=== PATIENT | male | born 1975 | race Caucasian/White ===

== ENCOUNTER 2018-10-26 11:04 | Outpatient (CLI) | payer OTHER, SELFPAY ==
--- NOTE | 2018-10-26 08:24 | DI.COMBO_ITS ---
SYMPTOM/DIAGNOSIS: RIGHT AND LEFT KNEE PAIN. LEG LENGTH EXAMINATION AND X-RAYS LEFT AND RIGHT KNEES: There are no priors for comparison. LEFT KNEE: The articular surfaces are well maintained. The bones are intact and normally mineralized. There is a moderate size joint, suprapatellar joint effusion. RIGHT KNEE: There is periarticular spurring involving all three joint compartments. There does appear to be mild narrowing of both the medial and lateral femoral tibial joint spaces. The bones are normally mineralized and intact. There is a moderate size suprapatellar joint effusion. LEG LENGTH EXAMINATION: The right lower extremity measures 86.8 cm. The left lower extremity measures 91.5 cm. IMPRESSION: Moderately severe osteoarthritis of the right knee. 2. Bilateral knee joint effusions.
== END 2018-10-26 11:24 ==
PROVIDERS: PCP Family Medicine; Visit Provider Physician Assistant
DX: M25.561 Pain in right knee (principal); M25.562 Pain in left knee; M25.462 Effusion, left knee; M25.461 Effusion, right knee; M17.11 Unilateral primary osteoarthritis, right knee
CPT/HCPCS: 73560; 77073

== ENCOUNTER 2019-10-26 07:01 | Outpatient (CLI) | payer OTHER, SELFPAY ==
[2019-10-28 07:51] LABS: COVID-19 RT-PCR Result NEGATIVE (Negative)
== END 2019-10-26 07:21 ==
PROVIDERS: PCP Family Medicine; Visit Provider Student in an Organized Health Care Education/Training Program
DX: M17.11 Unilateral primary osteoarthritis, right knee (principal); Z01.818 Encounter for other preprocedural examination; Z11.59 Encounter for screening for other viral diseases
CPT/HCPCS: U0003

== ENCOUNTER 2019-10-28 02:13 | Outpatient (CLI) | payer OTHER, SELFPAY ==
[2019-10-28 10:00] LABS: HCT 39.7 % (40.0-50.0); HGB 13.4 g/dL (13.5-17.5); Mean Corp. HGB Concentration 33.8 g/dL (32.0-36.0); Mean Corpuscular Hemoglobin 32.2 pg (27.0-33.0); Mean Corpuscular Volume 95.4 fL (80-95); Mean Platelet Volume 10.2 fL (8.0-11.0); Platelet Count 278 x1000/uL (130-400); RBC 4.16 m/cumm (4.50-6.00); RBC Distribution Width 12.9 % (11.8-14.1); White Blood Cell Count 5.19 k/cumm (4.4-10.8)
[2019-10-28 10:27] LABS: Anion Gap 7.9 mmol/L (3-11); BUN 13 mg/dL (7-18); CO2 30.1 mmol/L (21.0-32.0); CREATININE 0.75 mg/dL (0.70-1.30); Calcium 9.4 mg/dL (8.5-10.1); Chloride 103 mmol/L (98-107); Glucose 101 mg/dL (74-106); Potassium 4.2 mmol/L (3.5-5.1); Sodium 141 mmol/L (136-145)
== END 2019-10-28 02:33 ==
PROVIDERS: PCP Family Medicine; Visit Provider Student in an Organized Health Care Education/Training Program
DX: M17.11 Unilateral primary osteoarthritis, right knee (principal); Z01.818 Encounter for other preprocedural examination
CPT/HCPCS: 36415; 80048; 85027

== ENCOUNTER 2019-10-30 11:50 | Observation (INO) | payer OTHER, SELFPAY ==
[2019-10-30] VITALS (8 sets, daily range): BP systolic 103–143; BP diastolic 65–84; PULSE 66–107; RESP 8–18; TEMP 35.4–37; O2SAT 93–99
[2019-10-30] MEDS: Celecoxib 200 MG CAP 400 MG PO (12:47)
[2019-10-30] MEDS: Gabapentin 300 MG CAP PO (12:47)
[2019-10-30] MEDS: Acetaminophen 500 MG TAB 1000 MG PO ×2 (12:47→19:24)
[2019-10-30] MEDS: Lactated Ringers 1,000 ML 80 ML IV (12:50)
[2019-10-30] MEDS: ceFAZolin 2 GM/50 ML BAG IVPB (14:05)
--- NOTE | 2019-10-30 14:44 | SYNOVIUM_PTH ---
PATIENT: Homar Arredondo LOC: U#:[id number] AGE/SX: 44/M ROOM: RE10/30/[address]: Fausto Gonzales MD : [id number] BED: A DIS: 10/30/2019 SPEC #: [id number] RECD: 10/30/19 17:41 STATUS: BHARATH REQ #: [id number] NAZARIO: 10/30/19 14:[address]: Fausto Gonzales DEPT: Surgical Specimen RECD BY: Bibiana Pablo ENTERED: 10/30/19 17:41 SP TYPE: SYNOVIUM OTHR DR: Sunil Gómez Tissues: 1 - SYNOVIUM/IAL Procedures: GROSS AND MICRO LEVEL 4 Comments: [id number]
[2019-10-30] MEDS: Bupivacaine 0.25% Pres-Free 30 ML VIAL (14:58)
[2019-10-30] MEDS: Ketorolac 30 MG/ML VIAL (14:59)
[2019-10-30] MEDS: Normal Saline 20 ML VIAL (15:00)
--- NOTE | 2019-10-30 16:52 | W.PM.DS.N ---
Date of service: 10/30/19 Time of Service: 18:11 DS: Diagnosis Discharge Diagnosis (1) Primary osteoarthritis of right knee: Status: Chronic (2) Synovitis of right knee: Status: Acute Discharge Plan Disposition Patient Disposition: HOME Condition: Improving Discharge Details Reason For Visit: OA R KNEE Admit Date/Time: 10/30/19 11:50 Admit Provider: Fausto Gonzales Attending Provider: Fausto Gonzales Primary Care Provider: Sunil Gómez [facility] Hospital Course: Patient was admitted to the medical/surgical floor following the procedure. The surgery was tolerated well without any notable medical, surgical, or anesthetic complications. Mobilization began postoperatively. He was voiding spontaneously. Vitals were stable. Physical therapy worked with the patient and was cleared for discharge home. No acute medical issues. Pain was controlled on oral regimen. Home Meds and New Rx's Prescriptions: New celecoxib 200 mg capsule 200 mg PO BID PRN (Reason: pain) Qty: 60 RF: 1 acetaminophen 500 mg tablet 1,000 mg PO Q8H PRN (Reason: pain) Qty: 90 RF: 3 hydromorphone 2 mg tablet 2 mg PO Q4H PRN (Reason: pain) Qty: 18 RF: 0 docusate sodium [Colace] 100 mg capsule 100 mg PO BID PRNQty: 10 RF: 0 gabapentin 300 mg capsule 300 mg PO QHS Qty: 14 RF: 0 Continued Liver Complex 250-250 mg Tablet 1 mg PO DAILY RF: 0 [place] 1 caplet PO DAILY RF: 0 pantoprazole [Protonix] 20 mg Tablet,Delayed Release (Dr/Ec) 20 mg PO DAILY RF: 0 ascorbic acid (vitamin C) [Vitamin C] 500 mg Capsule, Extended Release 500 mg PO DAILY RF: 0 Cholocol tablet 500 mg PO DAILY RF: 0 Discontinued acetaminophen [Tylenol Arthritis Pain] 650 mg Tablet Extended Release 650 mg PO Q12H PRNRF: 0 Discharge Instructions Additional Instructions: Dr. Gonzales?s Total Knee Discharge Instructions Activity: The most important activity is to walk. You should try to take short walks a few times a day. It is important that when resting you work on keeping the knee straight. You have been fitted with a knee brace to help your knee stay straight. This should be kept on and locked as straight as possible when you are resting in the bed or chair. You may adjust the velcro straps for fit as needed. The more you keep it on the better to help this knee get straight. - Avoid putting a pillow behind the knee as this will encourage flexion. - Work on range of motion exercises as provided by Physical Therapy and the preoperative booklet. - Start outpatient physical therapy as soon as possible. - You should wear the KRISTINA hose on both legs for 2 weeks. Dressing: Keep the surgical dressing (Mepilex) in place for at least one week. If you went home on the surgical day, you should remove the JIN wrap on the second day (10/31) and then apply the KRISTINA hose. The dressing may get wet after 3 days but avoid soaking the dressing. If it gets wet, just lightly pat dry. Most patient prefer to cover with ClingWrap or Saran Wrap to keep the dressing dry. After the first week, the dressing may be removed and replaced with light gauze and tape or nothing. Medications: - You should take Tylenol and anti-inflammatory Celebrex as your primary pain control medications. If Celebrex is too costly or not covered, you may use Aleve (1-2 tablets twice a day). - You have been prescribed a stronger pain medication Hydromorphone for breakthrough pain, take as needed as prescribed. - You should continue your stomach acid reduction agent Pantoprozole to help reduce stomach acid and reflux. - You will be taking Aspirin 81mg twice a day for DVT prevention unless instructed otherwise. - If you have constipation you should take Colace or Miralax (both [id number]). It takes most people 3-4 days to have a bowel movement. Follow-up: 2 weeks. You should also call physical therapy to work on scheduling outpatient therapy sessions which can begin at 2 weeks. If you have any acute concerns or questions, please do not hesitate to contact the office at [phone]. You may contact Dr. Gonzales with any questions after hours through the hospital at [phone] or on his cell phone at [phone]. Referrals: [facility] [Provider Group] Fausto Gonzales MD [ [facility] STAFF PHYSICIAN] - Activity:: Activity as Tolerated Equipment/Supplies:: Walker Diet:: As Tolerated Discharge Orders Discharge Orders: Discharge Order (Routine); Ordered 10/30/19 Ordered By: Fausto Gonzales DS: Summary Status at Discharge Functional status at discharge: uses cane/walker Overall status at discharge: patient is progressing back to baseline Mental Status: mental status grossly normal Speech and Movement: speech and movement normal Mood: congruent mood Affect: normal affect Exam Psych Mental Status: mental status grossly normal Speech and Movement: speech and movement normal Mood: congruent mood Affect: normal affect DS: Data Vitals/I&O Vitals and I&O: Vital Signs Temperature 36.7 C 10/30/19 16:36 Pulse 86 10/30/19 16:36 Pulse Rhythm Regular 10/30/19 12:00 Respiratory Rate 12 10/30/19 16:36 Respiratory Effort 10/30/19 12:00 Respiratory Depth Normal 10/30/19 12:00 Respiratory Pattern Normal 10/30/19 12:00 Blood Pressure 128/65 10/30/19 16:36 Pulse Oximetry 93 L 10/30/19 16:36 Respiratory End-tidal CO2 32 10/30/19 16:36 Oxygen Delivery Method Room Air 10/30/19 16:36 Oxygen Flow Rate 0 10/30/19 12:00 Pain Level 5 10/30/19 16:36 Intake & Output 10/29/19 10/30/19 10/30/19 23:59 11:59 23:59 Intake Total 820 / 820 Output Total 300 / 300 Balance 520 / 520 Weight 89.2 kg Intake: IV 820 / 820 Output: Estimated Blood Loss 300 / 300 Other: Emesis Description None [facility] Medical History Stricture of bile duct (Acute) Ulcerative colitis (Chronic) Surgical History Cholecystectomy (04/06/11) Colonoscopy - MAC (06/01/11) [facility] [place]-ULCERATIVE COLITIS ERCP 09/16/14 [facility] [place] Previous back surgery (Acute) spina occulta fusion in Family History Mother No problems noted. Father Essential hypertension Heart disease ANEURYSM Hyperlipidemia Sister No problems noted. Grandfather No problems noted. Grandfather Heart disease Myocardial infarction Grandmother Essential hypertension Stroke Grandmother Essential hypertension Heart disease ANEURYSM Hyperlipidemia Stroke Social History Smoking/Tobacco Use Status: Never Drug use: Never Current gender identity: male
--- NOTE | 2019-10-30 17:26 | ROE_ITS ---
Date of service: 10/30/19 Time of Service: 16:18 Operative Note Operative Note DATE OF PROCEDURE: 10/30/19 PRE-OP DIAGNOSIS: Right Knee inflammatory arthritis and arthrofibrosis POST-OP DIAGNOSIS: same PROCEDURE: Right Total Knee Replacement with complete synovectomy and synovial biopsy SURGEON: Fausto Gonzales SEA[employer]OD TECHNOLOGY SPECIALIST: Arline Osborn ANESTHESIA: regional and spinal ESTIMATED BLOOD LOSS: 300 PATHOLOGY: none sent TOURNIQUET TIME: 34 COMPLICATIONS: None Patient was transported to: PACU Patient's condition: stable Implants: 1. Depuy Attune Cruciate Retaining Femoral Component, Size 5 2. Depuy Attune Rotating Platform Tibial Component, Size 5 3. Depuy Attune 5 x 12 mm CR,RP Poly 4. Depuy Attune Patellar Component, Size 38 mm Indications: I have seen Homar in clinic for symptoms of knee arthritis and arthrofibrosis, confirmed with radiographic findings. He has exhausted nonoperative methods and was having significant limitations in daily function and desired better function and less pain. I discussed the technical details of a knee replacement. I explained the risks of the procedure to include, but not limited to, bleeding, infection, pain, stiffness, fracture, damage to nerves and vessels, damage to muscles and tendons, loosening, need for repeat procedure, blood clot and cardiopulmonary demise. Despite these risks, he elected to proceed. Findings: There is abundant synovitis seen throughout the knee. This was thickened and inflammatory throughout the entire knee. A complete synovectomy was performed. There was significant signs of arthritis throughout the knee with erosive changes of the cartilage surfaces. Synovial biopsy was taken and sent to pathology. Procedure Description: Homar was greeted in the preoperative holding area where the correct side was identified and marked. The consent was reviewed with the patient and signed. The history and physical was updated. All questions were answered. Preoperative mediacations were administered: Acetaminophen 1000mg, Celebrex 400mg, and Gabapentin 300mg. An adductor canal block was then administered by the anesthesia team in the PACU. Homar was taken back to the operating room. A spinal anesthestic was then administered. The patient was placed into the supine position on the operating room table. A nonsterile tourniquet was placed high onto the leg but only used for cementing. Posts were placed for positioning during the procedure. All bony prominences were well padded. Prophylactic antibiotics in the form of cefazolin were administered. 1g of Tranxemic Acid was given intravenously within 30 minutes of incision. The right leg was then prepped with Chloraprep and draped in a standard fashion with impervious stockinette and extremity drape. A second prep with Chloraprep was performed prior to placing Ioband. A timeout to confirm correct identity, side and site, procedure, allergies, anesthesia, and medical concerns was performed. With the knee in some flexion, a midline incision was made overlying the knee. Full thickness skin flaps were raised once the extensor mechanism was encountered. These were raised medially and laterally. Any bleeding was controlled with electrocautery. Once the extensor mechanism was fully exposed, a medial parapatellar arthrotomy was performed in a flexed position. All bleeding from the arthrotomy and the geniculate arteries was coagulated. There was significant synovitis throughout the entire knee. The cartilage surfaces were coated with a thin inflammatory veil with erosive changes to the cartilage. The synovium was quite thick. A complete synovectomy was then performed moving anteriorly and around the medial lateral gutters. This was taken out en bloc and then sent to pathology as a synovial specimen for pathologic evaluation of presumed inflammatory arthritis. Additionally, rondure was used to clean out the gutters and synovium from around the patella was removed. A medial subperiosteal peel was performed with electrocautery to the midcoronal plane. The fat pad was removed while keeping the patellar tendon protected. The anterior distal femur synovium was removed for later visualization. The ACL and PCL were resected and the anterior horn of the lateral meniscus was transected. The knee was then flexed with the patella everted. Using a step drill, and based on preoperative templating, the femoral canal was entered. This was done with a step drill without any difficulty. The intramedullary distal femoral cut guide was inserted, set to a 5 degree valgus cut and 10mm cut thickness. A 10 mm cut was made due to a 35 degree flexion contracture. The distal femoral cut guide was then held in position and pinned. With the soft tissues protected, the distal cut was performed. This was passed over a few times to ensure a planar cut. I then turned attention to the tibia. The extramedullary guide was placed onto the leg. The distal aspect was slid medial to adjust for position of center of ankle and stay in line with shaft of the tibia. Approximately 5 degrees of posterior slope was kept in the proximal cutting guide. The center of the guide was aligned with the PCL. The stylus was used to assess cut thickness. The medial side, most involved side, was set for a 6mm cut, corresponded to 8 mm laterally. This was then held in position and pinned into place with 2 additional pins and a cross pin for stability. The medial and lateral collateral ligaments were protected and the cut was performed. With this completed, it was assessed and noted to be of appropriate dimensions. The guide was removed. A spacer block was inserted and the knee was brought into extension. However, there is significant tightness. Given the known flexion contracture I went back and cut an additional 2 mm off of the femur as well as cutting additional 2 mm off of the tibia. At this time, I also performed a posterior synovectomy as there was a abundant amount of synovium billowing from the posterior joint space. This was done with a rongeur and done carefully only taken tissue which easily was removed. The 7 mm spacer block provided full extension, however there was still some laxity in a bouncy, soft endpoint. The distal femur was then sized. The anterior stylus was placed onto the lateral ridge of the anterior femur. This indicated a size 5 femur. The external rotation of the guide was adjusted to 3 degrees to match the epicondylar axis, perpendicular to Starr?s line. The 4-in-1 cutting guide was the placed. The posterior medial femur cut was evaluated and appeared of good thickness. The spacer block was inserted underneath the cutting guide and stability was confirmed in 90 degrees of flexion. An nestor wing was used to confirm appropriate position of the anterior cut to avoid notching. This cutting guide was ensured to be flush on the cut surface and then pinned into place with headed pins. While protecting the soft tissues, quad tendon, and collateral ligaments, the anterior and posterior cuts were performed with a saw. The central two pins were removed and the posterior and anterior chamfers were cut next. The notch-cutting guide was placed. This was pinned to lateralize the femoral component as much as possible while keeping it flush on the cut surface. This was then pinned into position. A reciprocating saw was used to make the small notch cut. I then performed aggressive posterior capsule release. Using a curved osteotome I removed any posterior osteophytes. I then used electrocautery and my finger to slowly subperiosteally dissect posterior capsule from behind the medial condyles, notch, and lateral condyle. I then used a curved osteotome to very slowly elevate off the posterior capsule from the posterior femur. There is a abundant thickened synovium. A rondure was used to help thin this out, being cognizant careful of the posteriorly based neurovascular structures. A trial CR femoral component was then inserted, impacted down to the cut surfaces, and the lug holes were drilled. A provisional trial tibial component was placed and the knee was brought through range of motion. The polyethylene was trialed until there was good flexion and extension with excellent stability to the medial and lateral collaterals. The patella was tracking without thumbs. The tibial cut surface was fully exposed. The medial and lateral menisci were removed. The tibia was then sized as a 5. The tibia had been previously marked during trialing to correspond to the center of the tibial component to help with rotation. The trial was aligned to this hattie, approximately rotated to the medial 1/3rd of the tibial tubercle. The trial was pinned into place. The tibia was prepared with a reamer and a keel punch. The knee was then brought into extension and the patella was measured as 28 mm. Using the patellar clamp and cut guide, this was resected to a flat surface with at least 13mm of thickness remaining. The size 38 mm patella fit the best. This was oriented and then clamped into position. The lugs were drilled. The trial components were removed. The final components, except for the polyeth ylene were opened on the back table. The periosteal and capsular tissues, especially posteriorly, around the knee were then systematically injected with a periarticular cocktail consisting of 50cc 0.25% Marcaine, 30mg Ketorolac, 20cc of Exparal and 50cc of injectable saline. The tourniquet was then inflated to 275mmHg. The knee was thoroughly irrigated with a pulse lavage and dried. On the back table, with the implants opened, the cement was mixed. 2 batches of antibiotic laden cement were prepared with vacuum assistance. After the cement was ready it was placed on to the back side of the tibial component. A small amount was placed onto the posterior flange of the femur. Cement was manual pressurized and impregnated into the cut surface of the tibia. The tibial component was then inserted into the cut surface and impacted into position. Excess cement was removed and the component was reimpacted. Again, excess cement was removed and our attention was then turned to the femur. The femoral cut surface was once again dried and cement was manually impacted into the cut surface. The femoral component was lined with the lug holes and impacted. Excess cement was removed. It was ensured to be down against the cut surface. The trial polyethylene was then inserted and the leg was brought out into full extension for the duration of the cement curing process, approximately 15min. Cement was lastly manually impacted into the cut surface of the patella and the patellar button was clamped into position and held. During this process attention was turned to the gutters of the knee and for all interfaces for any excess cement. While the cement was hardening, the knee was irrigated with Irrisept chlorhexadine solution. It was allowed to sit in the knee for 3 minutes. After the cement had finally cured, approximately 15min, the clamp was removed from the patella and the knee was taken through range of motion. A size 12 mm polyethylene component provided the best range of motion and stability with less than 2mm gapping with medial and lateral stress and full extension without significant hyperextension. There is still significant balance to the knee. However, after all the synovium was resected there is slightly more lateral instability that I would like with the 10 mm tray. However, between the 10 and 12 mm polyethylene, there is very little change in the extension. He would fall to about 3 to 5 degrees of extension but like to recoil to 10. I was able to passively get him fully straight although it was a soft endpoint. The patella was tracking with a no-thumbs technique. The trial poly was removed and once again the knee was checked for any loose, excess, or errant cement. The poly component was then inserted into position after cleaning and drying the tibial tray. The capsule was then reapproximated with a No. 1 Vicryl at multiple locations. The capsule was finally closed with a No. 2 Stratafix, barbed suture. The tourniquet was then released and the arthrotomy appeared watertight without significant bleeding. The second dosing of 1g TXA was started. Deep tissues were then reapproximated with 0 Vicryl and 2-0 Vicryl. The skin was closed with a running 3-0 Monocryl in a subcuticular fashion. This was reinforced with skin glue. A Mepilex silver dressing was applied along with a [id number] JIN wrap. A CryoCuff was applied. Homar was transferred to the hospital bed without difficulty an suffering no apparent complication. Homar has a guarded prognosis. His preoperative range of motion was about 35 to 85 degrees. After closure of this arthrotomy, his range of motion was 5 to 130 degrees. I am concerned that his years of being limited with range of motion will cause significant postoperative difficulties regaining flexion and extension. Therefore, I placed him into a locked hinged knee brace. He is to wear this locked in extension while he is resting at bed and in the chair. He is to either unlock it or take it off for range of motion exercises and for ambulation as he desires. Physical therapy will start today and without restrictions, weight-bearing as tolerated. Aspirin 81mg BID will be used for DVT prophylaxis.
--- NOTE | 2019-10-30 17:40 | IN_ITS ---
Date of service: 10/30/19 Time of Service: 17:40 PT Notes Visit Reasons: OA R KNEE Physical Therapy Inpatient Initial Evaluation Date: 10/30/2019 Referring Doctor: Fausto Gonzales MD PT Orders: PT CONSULT: Status post Ortho surgery Precautions: Fall. Standard. WBAT on her right LE. Hinged knee joint on when in bed to facilitate passive stretch to right hamstring per Ortho MD. Patient Profile/Admitting Diagnosis: Homar is a 44-year-old male who has right knee inflammatory arthritis and arthrofibrosis and is status post right total knee arthroplasty with complete synovectomy and synovial biopsy on postoperative day 0. PMHX: Medical History (Updated 10/18/19 @ 16:44 by TANNER Henderson) Stricture of bile duct (Acute) Ulcerative colitis (Chronic) Surgical History (Updated 10/18/19 @ 09:57 by TANNER Henderson) Cholecystectomy (04/06/11) Colonoscopy - MAC (06/01/11) [facility] [place]-ULCERATIVE COLITIS ERCP 09/16/14 [facility] [place] Previous back surgery (Acute) spina occulta fusion in Do not have any alcohol Social History/Home Situation: Homar lives alone in a private home with 2 steps to enter. He states that his father will be able to provide support for him once he goes home with anything that he needs. Equipment Owned/DME: Bilateral axillary crutches, front wheeled walker Subjective: Homar reports discomfort on the lateral aspect area of the right knee over overlying the lateral femoral condyle. He complains of stiffness on the back of his thigh and knee. He denies dizziness, chest pain, and lightheadedness throughout session. He is hoping to go home today stating that he will have the support he needs at home. Objective: General Observation: Hinged knee brace on right side. IV in the right UE. TEDS on the left. Mental Status: Alert and oriented x4 Pain: 4/10 in the right knee ROM: Right Upper Extremity: Shoulder Flexion WFL. Shoulder abduction WFL. Elbow flexion WFL. Wrist flexion WFL. Opening and closing of hand WFL. Left Upper Extremity: Shoulder Flexion WFL. Shoulder abduction WFL. Elbow flexion WFL. Wrist flexion WFL. Opening and closing of hand WFL. Right Lower Extremity: Hip flexion WFL. Hip abduction WFL. Knee flexion allows up to 80 degrees. Knee extension -30 degrees. Ankle dorsiflexion WFL. Ankle plantarflexion WFL. Left Lower Extremity: Hip flexion WFL. Hip abduction WFL. Knee flexion WFL. Knee extension -10 degrees. Ankle dorsiflexion WFL. Ankle plantarflexion WFL. Strength: Right Upper Extremity: Shoulder flexors 5/5. Shoulder abductors 5/5. Elbow flexors 5/5. Elbow extensors 5/5. Semiconductor Assembler strong. Left Upper Extremity: Shoulder flexors 5/5. Shoulder abductors 5/5. Elbow flexors 5/5. Elbow extensors 5/5. Semiconductor Assembler strong. Right Lower Extremity: Hip flexors 4-/5. Hip abductors 4-/5. Knee flexors 3-/5. Knee extensors 3-/5. Ankle dorsiflexors 4/5. Ankle plantarflexors 4/5. Left Lower Extremity:Hip flexors 5/5. Hip abductors 5/5. Knee flexors 5/5. Knee extensors 5/5. Ankle dorsiflexors 5/5. Ankle plantarflexors 5/5. Sensation: Intact as to pain and pressure on bilateral lower extremities. Bed Mobility/Transfers: Supine to sit supervision Sit to supine supervision Sit to stand contact-guard assist Stand to sit contact-guard assist Bed to chair contact-guard assist Chair to bed contact-guard assist Gait: Patient tolerated level surface ambulation of 150 feet using front wheeled walker with contact-guard assist and IV pole management of PT as well as a wheelchair follow of nurse Mccabe. Jessica decreased but patient states that he is significantly more able to stand upright and is able to straighten knee considerably compared to pre-surgery status. Step-to gait pattern. Decreased knee extension on the right. Right knee flexed to about 30 degrees throughout gait cycle. Balance: Static Sitting: Normal Dynamic Sitting: Normal Static Standing: Fair Dynamic Standing: Fair Special Tests: Mobility Limitations Standardized Measure [facility] 6 clicks Basic Mobility Inpatient Short Form: Raw Score: 18 CMS Score: 47% deficit Informed Consent/Education: Patient instructed in purpose of PT consult and plan of care. Assessment: Homar demonstrates ambulatory dysfunction requiring the use of a front wheeled walker to maximize safety. Right flexion contracture has significantly diminished and he is able to actively extend knee from 80degrees of flex position to about -30 degrees of knee extension. He will require continued skilled physical therapy services in order to minimize soft tissue adhesion and strengthen right knee major muscle groups in order to achieve safest to gait pattern and maximize functional mobility independence. Patient presents with clinical signs and symptoms consistent with current/admitting diagnoses that have resulted to mobility limitations, gait instability, generalized weakness, and impairment of motor control as demonstrated by the following impairment level findings: 1. Decreased strength to right knee major muscle groups 2. Impaired standing balance 3. Impaired activity tolerance 4. Limitation of joint range of motion in right knee Impairments are contributing to the following functional limitations: 1. Inability to safely ambulate without assistive device and physical assistance 2. Increase completion time for mobility ADL performance 3. Increased fall risk 4. Inability to negotiate steps alone safely Patient is assessed as a moderate complexity based on the following: History: 44-year-old male with impairment level findings, functional limitations, and past medical history as indicated above Examination: Demonstrable impairment in strength, balance, and mobility level with underlying impairments and functional limitations as documented above Presentation:Evolving Decision Makin moderate complexity Goals: N/A. PT consult only. Plan of Care/Treatment Plan: N/A. PT consult only. DISCHARGE RECOMMENDATIONS: Outpatient PT services for continued strengthening and ranging of right LE and mobility progression using least restrictive device. TREATMENT CODE/TIME: 9716 2 x 20 minutes, 9753 0 x 25 minutes beginning at 5:40 PM. Thank you for the opportunity to participate in the care of this patient. Rajni Menendez PT, DPT, CLT [facility] [place], [place]
[2019-10-30] MEDS: Celecoxib 100 MG CAP 200 MG PO (19:23)
[2019-10-30] MEDS: Aspirin E.C. 81 MG TABEC PO (19:24)
== END 2019-10-30 19:28 | disposition home or self-care (01) ==
LOC: PDS 16:57 → MS 17:30 → PDS 10-31 09:58
PROVIDERS: Admitting Provider Student in an Organized Health Care Education/Training Program; PCP Family Medicine; Visit Provider Student in an Organized Health Care Education/Training Program
PROC: 0SRC0J9 Replacement of Right Knee Joint with Synthetic Substitute, Cemented, Open Approach (ICD-10-PCS; CPT 27447; principal; 2019-10-30 14:15)
DX: M17.11 Unilateral primary osteoarthritis, right knee (principal); M25.561 Pain in right knee; Z96.651 Presence of right artificial knee joint; M65.861 Other synovitis and tenosynovitis, right lower leg; G89.18 Other acute postprocedural pain
CPT/HCPCS: 27447; 27335; C1776; 76942; 88305; 97162; 97530; NC; G0378; J0690; J1885; J2001; J2250; J2405; J2704; J3010; L1833

== ENCOUNTER 2019-11-14 11:13 | Outpatient (CLI) | payer OTHER, SELFPAY ==
--- NOTE | 2019-11-14 10:45 | DI.RAD_ITS ---
EXAM: XR STANDING ALIGNMENT CLINICAL HISTORY: 1st post op TECHNIQUE: COMPARISON: CR XR standing alignment from 10/26/2018 FINDINGS: AP views of lower extremities were obtained using standing alignment protocol. There are mild degene rative changes of the right hip. There is a total knee joint replacement in position on the right. There appears to be degenerative narrowing of the medial tibial femoral joint on the left. IMPRESSION:
--- NOTE | 2019-11-14 10:45 | DI.RAD_ITS ---
EXAM: XR KNEE RT 1V CLINICAL HISTORY: 1st post op TECHNIQUE: COMPARISON: CR XR knee LT 2V AP,lat from 10/26/2018 FINDINGS: Single lateral view was obtained. There is a total knee joint replacement in position. Components a ppear well seated. No other significant bony abnormality seen. IMPRESSION:
== END 2019-11-14 11:33 ==
PROVIDERS: PCP Internal Medicine; Referring Provider Internal Medicine; Visit Provider Physician Assistant
DX: Z96.651 Presence of right artificial knee joint (principal); M16.11 Unilateral primary osteoarthritis, right hip
CPT/HCPCS: 73560; 77073

== ENCOUNTER 2019-12-13 07:07 | Outpatient (CLI) | payer OTHER, SELFPAY ==
[2019-12-15 17:58] LABS: COVID-19 RT-PCR Result NEGATIVE (Negative)
== END 2019-12-13 07:27 ==
PROVIDERS: Visit Provider Student in an Organized Health Care Education/Training Program
DX: Z20.828 Contact with and (suspected) exposure to other viral communicable diseases (principal)
CPT/HCPCS: U0003

== ENCOUNTER 2019-12-18 08:29 | Day surgery (SDC) | payer OTHER, SELFPAY ==
[2019-12-18] VITALS (9 sets, daily range): BP systolic 121–212; BP diastolic 74–100; PULSE 80–104; RESP 12–20; TEMP 36.6–37; O2SAT 95–100
[2019-12-18] MEDS: Lactated Ringers 1,000 ML 80 ML IV (09:20)
[2019-12-18] MEDS: Bupivacaine 0.5% Pres-Free 30 ML VIAL (09:50)
[2019-12-18] MEDS: HYDROmorphone 2 MG/ML VIAL IVP (10:10)
--- NOTE | 2019-12-18 10:17 | W.PM.DSUDISC ---
Discharge Plan Disposition Patient Disposition: HOME Condition: Good Discharge Details Reason For Visit: Right Knee Arthrofibrosis Attending Provider: Fausto Gonzales Primary Care Provider: None,None Home Meds and New Rx's Prescriptions: Continued cyclobenzaprine 5 mg tablet 5 mg PO TID PRN (Reason: muscle spasm) Qty: 15 RF: 0 Liver Complex 250-250 mg Tablet 1 mg PO DAILY RF: 0 Chanca [place] 1 caplet PO DAILY RF: 0 pantoprazole [Protonix] 20 mg Tablet,Delayed Release (Dr/Ec) 20 mg PO DAILY RF: 0 ascorbic acid (vitamin C) [Vitamin C] 500 mg Capsule, Extended Release 500 mg PO DAILY RF: 0 Cholocol tablet 500 mg PO DAILY RF: 0 celecoxib 200 mg capsule 200 mg PO BID PRN (Reason: pain) Qty: 60 RF: 1 acetaminophen 500 mg tablet 1,000 mg PO Q8H PRN (Reason: pain) Qty: 90 RF: 3 docusate sodium [Colace] 100 mg capsule 100 mg PO BID PRNQty: 10 RF: 0 gabapentin 300 mg capsule 300 mg PO QHS Qty: 14 RF: 0 Probiotic 3 billion cell Capsule 3,000 mmu cells PO DAILY RF: 0 hydromorphone 2 mg tablet 2 mg PO Q6H MDD 8 mg PRN (Reason: pain) Qty: 20 RF: 0 Discharge Instructions Additional Instructions: Activity: You should begin moving as soon as possible. You may work on flexion but also equally maintain extension. You may bear weight as tolerated, using crutches only for support/comfort. You should apply ice to help with swelling and elevate when possible (especially in the first few days). You should apply ice to assist with swelling and pain. Medications: - Rarely does this require any stronger pain medications, but it may for the first few days or with PT. A refill of Hydromorphone has been called in. - Recommend to take up to 1000mg of Acetaminophen (Tylenol) every 8 hours and Celebrex 200mg twice a day as needed. Follow-up: 7-10 days. PT should start tomorrow. Activity:: Activity as Tolerated Remove Dressings/Wound Care:: 24 hours Shower/Bathe:: 24 hours Diet:: As Tolerated Discharge Orders Discharge Orders: Discharge Order (Routine); Ordered 12/18/19 Ordered By: Fausto Gonzales DS: Diagnosis Discharge Diagnosis (1) Arthrofibrosis of total knee arthroplasty: Status: Acute
--- NOTE | 2019-12-18 11:21 | ROE_ITS ---
Date of service: 12/18/19 Time of Service: 10:33 Operative Note Operative Note DATE OF PROCEDURE: 12/18/19 PRE-OP DIAGNOSIS: Right Knee Arthrofibrosis s/p Replacement POST-OP DIAGNOSIS: same PROCEDURE: Right Knee Manipulation Under Anesthesia SURGEON: Fausto Gonzales ANESTHESIA: CASSIE ESTIMATED BLOOD LOSS: 0 PATHOLOGY: none sent TOURNIQUET TIME: 0 COMPLICATIONS: None Patient was transported to: PACU Patient's condition: stable Indications: Homar is a 44 year old who is s/p knee replacement. Despite diligent work with physical therapy there has been continued stiffness. To assist with mobility, I offered a manipulation under anesthesia. I discussed the risks of the procedure to include bleeding, pain, recurrent stiffness, fracture. Despite these risks, he elects to proceed. Findings: Preoperative flexion = 75 Postoperative flexion = 125 Preoperative extension = 20 Postoperative extension = 5 Procedure Description: The patient is agreed in the preoperative holding area. Identity was confirmed and the correct side was identified and marked. The consent was reviewed the patient and signed. History and physical was updated. Homar was taken back to the operating room. The right side was identified as the correct side. A timeout was performed for safe surgery. A general anesthetic was administered. The knee was then prepped with ChloraPrep and an intra-articular injection of 10 cc of 0.5% bupivacaine was administered. Once a muscle relaxant was fully on board manipulation was performed. Pre- manipulation range of motion was noted. A gentle manipulation was performed first into flexion using a very small lever arm and adding gentle and progressive pressure to the tibia. There is audible and palpable crepitus with improvement in range of motion. This was cycled and repeated multiple times. The leg was then brought into extension and gentle anterior posterior pressure was applied with a supported hand behind the proximal tibia and knee. This was brought back into flexion was once again manipulated with gentle and progressive pressure. Final range of motion numbers were recorded. A Band-Aid was applied to the injection site. He was awakened from anesthesia and taken to the PACU in stable condition.
[2019-12-18] MEDS: HYDROmorphone 2 MG TAB PO (11:56)
== END 2019-12-18 12:55 | disposition home or self-care (01) ==
PROVIDERS: Visit Provider Student in an Organized Health Care Education/Training Program
PROC: (CPT 27570; principal; 2019-12-18 10:15)
DX: T84.82XA Fibrosis due to internal orthopedic prosthetic devices, implants and grafts, initial encounter (principal)
CPT/HCPCS: 27570; J1885; J2001; J2704

== ENCOUNTER 2020-10-26 15:50 | Outpatient (CLI) | payer OTHER, SELFPAY ==
--- NOTE | 2020-10-26 14:45 | DI.RAD_ITS ---
Exam(s) XR KNEE RT 2V AP,LAT EXAM: XR KNEE RT 2V AP,LAT CLINICAL HISTORY: annual f/u R TKA. TECHNIQUE: 2D digital imaging was performed. COMPARISON: CR XR KNEE RT 1V from 11/14/2019 FINDINGS: Position alignment of the components of the prosthesis remain stable. There is no fracture nor evide nce of loosening. IMPRESSION: DATA REPOSITORY: RADIATION DOSE DELIVERED:
== END 2020-10-26 15:51 | disposition home or self-care (01) ==
LOC: DIORS 15:50
PROVIDERS: Visit Provider Student in an Organized Health Care Education/Training Program
DX: Z96.651 Presence of right artificial knee joint (principal)
CPT/HCPCS: 73560

== ENCOUNTER 2021-12-02 10:51 | Emergency (ER) | payer OTHER, SELFPAY ==
[2021-12-02 11:10] VITALS: BP 135/86; PULSE 88; RESP 18; TEMP 36.8; O2SAT 99
--- NOTE | 2021-12-02 12:15 | DI.CT_ITS ---
Exam(s) CT ABDOMEN PELVIS WO EXAM: CT ABDOMEN PELVIS WO CLINICAL HISTORY: Right flank pain TECHNIQUE: COMPARISON: CT RENAL COLIC WO CONTRAST from 03/14/2011 FINDINGS: CT examination of the abdomen and pelvis was performed without contrast administration. Images obtained through the lung bases are unremarkable. The liver appears normal with no evidence of a focal mass. There is question of wall thickening of the gastric antrum and duodenal bulb raising the possibility of inflammatory process, there is also mild associated Nithya visceral fat edema.. No evidence of obst ruction. No perforation. Spleen is unremarkable in appearance.. Note is made of a prior cholecystectomy,bile ducts are unremarkable. Pancreas is unremarkable in appearance. Adrenals appear normal bilaterally. There are multiple bilateral renal calculi, the largest lies in the right kidney and measures 12 mill imeters in diameter. No ureteral calcification. Urinary bladder appears to contain a tiny stone whi ch could lie within the bladder lumen or in the distal most portion of the intramural portion of the right ureter period no hydronephrosis at this time. There is no evidence of abdominal or pelvic adenopathy. Abdominal aorta is of normal diameter and no abnormality is seen involving major visceral branches.. Appendix is normal. No evidence diverticulitis or bowel obstruction. No significant abdominal wall hernia seen. Impression: Bilateral nephrolithiasis with stone in the urinary bladder versus intramural portion of the distal r ight ureter. Additionally, there are findings raising the possibility of gastritis and/or duodenitis. Please sudheer elate clinically. RADIATION DOSE DELIVERED: Total DLP Total DLP !Error CTDIvol DATA REPOSITORY: All CT scans at this facility are submitted to the National Radiology Data Registry (NRDR) Dose Index Registry (DIR) with the [employer] ([employer]). RADIATION OPTIMIZATION: All CT scans at this facility use at least one of these dose optimization te chniques: automated exposure control; mA and/or kV adjustment per patient size (includes targeted exa ms where dose is matched to clinical indication); or iterative reconstruction.
--- NOTE | 2021-12-02 12:29 | W.ED.GENAD ---
Discharge Plan Disposition Patient Disposition: HOME Condition: Stable Discharge Details Clinical Impression: Kidney stone on right side, Duodenitis, Elevated liver enzymes Primary Care Provider: None,None ED Provider: Samina Camargo Home Meds and New Rx's Prescriptions: New ondansetron 4 mg tablet,disintegrating 4 mg PO Q8H PRN5 Days Qty: 15 0RF No Action acetaminophen 500 mg tablet 1,000 mg PO Q8H PRN (Reason: pain) Qty: 90 3RF celecoxib 200 mg capsule See Rx Instructions .ROUTE .COMPLEX Qty: 60 5RF Dose Instruction: TAKE ONE CAPSULE BY MOUTH TWICE A DAY NEEDED FOR PAIN Rx Instructions: TAKE ONE CAPSULE BY MOUTH TWICE A DAY NEEDED FOR PAIN Liver Complex 250-250 mg Tablet 1 mg PO DAILY Chanca [place] 1 caplet PO DAILY ascorbic acid (vitamin C) [Vitamin C] 500 mg Capsule, Extended Release 500 mg PO DAILY Cholocol tablet 500 mg PO DAILY Probiotic 3 billion cell Capsule 3,000 mmu cells PO DAILY Label Comments: pt. unsure of dose or name Discharge Instructions Instructions: Kidney Stones (ED) Additional Instructions: Your liver enzymes are elevated today. AST 100, ALT 181, Alkaline Phospatase 1049. Bilirubin 5.5 Please let your GI doctor know about these levels. You do have a large kidney stone within your right kidney. And a smaller 1 in the ureter. Please follow-up with urology regarding this. Take the nausea medication and pain medication as directed. Do not take any Tylenol if possible due to the elevated liver enzymes Referrals: Jeffery Estevez MD [ [facility] STAFF PHYSICIAN] - 5 days (12 mm Right side kidney stone) Medical Decision Making 46-year-old male presents to the ER chief complaint of right flank pain, nausea and presyncopal. He reports lightheadedness feeling like he is going to pass out. He states he has had right flank pain for the last 2 weeks and increased abdominal pain in his mid epigastrium over the last [address] shows 12 mm right-sided kidney stone, there is also a 1 mm ureteral stone at the junction of the bladder. He also has some inflammation around his duodenum and fat stranding. Patient reports that he recently stopped his Protonix and they did see an ulcer on his recent endoscopy. Discussed CT results with patient who verbalized understanding. I did discuss his lab results. Encouraged 3 use of his Protonix and close follow-up. Patient was sent home with Zofran and tramadol. This text was generated using [employer] dictation system, please disregard any oddities of phrase or misspellings. Imaging Data Radiologic Study: Imaging: CT Scan Radiologist's impression: CT examination of the abdomen and pelvis was performed without contrast administration. Images obtained through the lung bases are unremarkable. The liver appears normal with no evidence of a focal mass. There is question of wall thickening of the gastric antrum and duodenal bulb raising the possibility of inflammatory process, there is also mild associated Nithya visceral fat edema.. No evidence of obstruction. No perforation. Spleen is unremarkable in appearance.. Note is made of a prior cholecystectomy,bile ducts are unremarkable. Pancreas is unremarkable in appearance. Adrenals appear normal bilaterally. There are multiple bilateral renal calculi, the largest lies in the right kidney and measures 12 millimeters in diameter. No ureteral calcification. Urinary bladder appears to contain a tiny stone which could lie within the bladder lumen or in the distal most portion of the intramural portion of the right ureter period no hydronephrosis at this time. There is no evidence of abdominal or pelvic adenopathy. Abdominal aorta is of normal diameter and no abnormality is seen involving major visceral branches.. Appendix is normal. No evidence diverticulitis or bowel obstruction. No significant abdominal wall hernia seen. Impression: Bilateral nephrolithiasis with stone in the urinary bladder versus intramural portion of the distal right ureter. Additionally, there are findings raising the possibility of gastritis and/or duodenitis. Please correlate clinically. Lab Data Lab results reviewed: Yes I reviewed the patient's lab results. Labs: 12/02/21 12:35 Urine - Reflex from Ua Urine Culture - Pending Laboratory Tests Range/Units 12/02/21 12/02/21 12/02/21 12:35 13:33 13:33 WBC (4.4-10.8) 10^3/uL 6.36 RBC (4.36-5.78) 10^6/uL 3.85 L Hgb (13.5-17.5) g/dL 12.6 L Hct (40.0-50.0) % 37.9 L MCV (80-95) fL 98 H MCH (27.0-33.0) pg 32.7 MCHC (32.0-36.0) % 33.2 RDW (11.8-14.1) % 13.6 Plt Count (130-400) 10^3/uL 263 MPV (8.0-11.0) fL 11.4 H Immature Gran % 0.3 Neutrophils % 70.4 Lymphocytes % 15.9 Monocytes % 6.8 Eosinophils % 5.7 Basophils % 0.9 Nucleated RBC % (0.0-0.3) % 0.0 Absolute Neutrophils (1.2-6.7) 10^3/uL 4.48 Absolute Lymphocytes (1.2-3.4) 10^3/uL 1.01 L Absolute Monocytes (0.1-0.8) 10^3/uL 0.43 Absolute Eosinophils (0.0-0.7) 10^3/uL 0.36 Absolute Basophils (0.0-0.2) 10^3/uL 0.06 Sodium Cancelled Potassium Cancelled Chloride Cancelled Carbon Dioxide Cancelled Anion Gap Cancelled BUN Cancelled Creatinine Cancelled Estimated GFR/1.73 m2 Cancelled Glucose Cancelled Calcium Cancelled Total Bilirubin Cancelled AST Cancelled ALT Cancelled Alkaline Phosphatase Cancelled Total Protein Cancelled Albumin Cancelled Urine Color (Yellow) Dark Yellow Urine Clarity (Clear) Clear Urine pH (5-8) 6.0 Ur Specific [place] (1.005-1.025) >= 1.030 H Urine Protein (Negative) mg/dL 30 H Urine Ketones (Negative) mg/dL Negative Urine Blood (Negative) Moderate H Urine Nitrite (Negative) Negative Urine Bilirubin (Negative) Moderate H Urine Urobilinogen (Up TO 0.2) EU/dL 4.0 H Ur Leukocyte Esterase (Negative) Small H Urine RBC (0-2) HPF 5-10 H Urine WBC (0-5) HPF 3-5 Ur Epithelial Cells (Negative) HPF Few Urine Crystals (Negative) HPF Negative Urine Bacteria (Negative) HPF Rare Urine Casts (Negative) LPF 0-2 Hyaline Urine Mucus (Negative) Negative Ur Culture Indicated? Yes Urine Glucose (Negative) mg/dL Negative Range/Units 12/02/21 13:51 WBC (4.4-10.8) 10^3/uL RBC (4.36-5.78) 10^6/uL Hgb (13.5-17.5) g/dL Hct (40.0-50.0) % MCV (80-95) fL MCH (27.0-33.0) pg MCHC (32.0-36.0) % RDW (11.8-14.1) % Plt Count (130-400) 10^3/uL MPV (8.0-11.0) fL Immature Gran % Neutrophils % Lymphocytes % Monocytes % Eosinophils % Basophils % Nucleated RBC % (0.0-0.3) % Absolute Neutrophils (1.2-6.7) 10^3/uL Absolute Lymphocytes (1.2-3.4) 10^3/uL Absolute Monocytes (0.1-0.8) 10^3/uL Absolute Eosinophils (0.0-0.7) 10^3/uL Absolute Basophils (0.0-0.2) 10^3/uL Sodium 135 L Potassium 3.8 Chloride 101 Carbon Dioxide 27.9 Anion Gap 6.1 BUN 14 Creatinine 0.7 Estimated GFR/1.73 m2 >= 60.00 Glucose 257 H Calcium 9.0 Total Bilirubin 5.5 H AST 100 H ALT 181 H Alkaline Phosphatase 1049 H Total Protein 8.3 H Albumin 2.8 L Urine Color (Yellow) Urine Clarity (Clear) Urine pH (5-8) Ur Specific [place] (1.005-1.025) Urine Protein (Negative) mg/dL Urine Ketones (Negative) mg/dL Urine Blood (Negative) Urine Nitrite (Negative) Urine Bilirubin (Negative) Urine Urobilinogen (Up TO 0.2) EU/dL Ur Leukocyte Esterase (Negative) Urine RBC (0-2) HPF Urine WBC (0-5) HPF Ur Epithelial Cells (Negative) HPF Urine Crystals (Negative) HPF Urine Bacteria (Negative) HPF Urine Casts (Negative) LPF Urine Mucus (Negative) Ur Culture Indicated? Urine Glucose (Negative) mg/dL HPI General Mode of arrival: wheelchair. Date/Time Provider Initiated Documentation: 12/02/21 10:55. Limitations to Documentation: no limitations. Information obtained by: patient, RN notes reviewed and old records reviewed. HPI Narrative: 46-year-old male presents to the ER chief complaint of right flank pain, nausea and presyncopal. He reports lightheadedness feeling like he is going to pass out. He states he has had right flank pain for the last 2 weeks and increased abdominal pain in his mid epigastrium over the last 2 days. He does have a history of kidney stones, ulcerative colitis and was recently diagnosed with diabetes. He was recently admitted at [facility] and had a procedure at [facility]. Related Data Home Medications Medication Instructions Recorded Confirmed Lorenzo Salas[place] 1 caplet PO DAILY 10/28/19 10/26/20 milk thistle seed 1 mg PO DAILY 10/28/19 10/26/20 [id number] 250 mg-250 mg tablet (Liver Complex) Cholocol 500 mg PO DAILY 10/30/19 10/26/20 ascorbic acid (vitamin C) 500 mg 500 mg PO DAILY 10/30/19 10/26/20 capsule,extended release (Vitamin C) lactobacillus combination no.4 3 3,000 mmu cells PO DAILY 12/18/19 10/26/20 billion cell capsule (Probiotic) acetaminophen 500 mg tablet 1,000 mg PO Q8H PRN pain #90 tabs 01/06/20 10/26/20 celecoxib 200 mg capsule See Rx Instructions .Route 06/16/21 .COMPLEX #60 caps ondansetron 4 mg disintegrating 4 mg PO Q8H PRN 5 days #15 tabs 12/02/21 tablet Previous Rx's Medication Instructions Recorded acetaminophen 500 mg tablet 1,000 mg PO Q8H PRN pain #90 tabs 01/06/20 celecoxib 200 mg capsule See Rx Instructions .Route 06/16/21 .COMPLEX #60 caps ondansetron 4 mg disintegrating 4 mg PO Q8H PRN 5 days #15 tabs 12/02/21 tablet Allergies Allergy/AdvReac Type Severity Reaction Status Date / Time acetaminophen [From Percocet] AdvReac Intermediate EMOTIONAL Verified 12/02/21 11:21 oxycodone [From Percocet] AdvReac Intermediate EMOTIONAL Verified 04/20/20 15:27 midazolam [From Versed] AdvReac Unknown Pt states Verified 04/20/20 15:27 being advised by MD to avoid General Stated Complaint: FlankPain CURTIS: 3 Review of Systems All systems reviewed & are unremarkable except as noted in HPI and below Gastrointestinal Gastrointestinal: Reports as per HPI, Reports abdominal pain, Denies diarrhea, Reports nausea and Denies vomiting Genitourinary Genitourinary: Reports flank pain PFSH All Active Problems Kidney stone on right side (Acute) Duodenitis (Acute) Elevated liver enzymes (Acute) Internal derangement of left knee (Acute) Injection: 11/14/2018 Peroneal tendinitis of left lower leg (Acute) Synovitis of right knee (Acute) Arthrofibrosis of total knee arthroplasty (Acute) S/P manipulation: 12/17/2019 Status post total knee replacement, right (Acute 10/30/19) Medical History History of kidney stones Kidney stones (05/06/14) Lumbar disc prolapse with compression radiculopathy S/P surgery Stricture of bile duct Ulcerative colitis Surgical History Cholecystectomy (04/06/11) [place]06[place]/11[place] [facility] [place] [facility] [place] of [place] biopsy History of tonsillectomy and adenoidectomy Previous back surgery spina occulta fusion in 1989' Family History Mother No problems noted. Father Essential hypertension Heart disease ANEURYSM Hyperlipidemia Sister No problems noted. Grandfather No problems noted. Grandfather Heart disease Myocardial infarction Grandmother Essential hypertension Stroke Grandmother Essential hypertension Heart disease ANEURYSM Hyperlipidemia Stroke Social History Smoking/Tobacco Use Status: Never Smoking risk assessment performed?: Yes Alcohol Intake: never Drug use: Never Substance use type: does not use Current gender identity: male Do you feel safe at home: Yes Additional Social history: lives alone Exam Narrative Exam Narrative: Constitutional: Alert and oriented x3. Appears stated age. Normal body habitus. Head: Normocephalic, no trauma. Eyes: Pupils PERRL, Red reflex noted, EOM's intact. Eyelids symmetrical without lesions, discharge, or swelling. ENT: Bilateral TM's WNL, External ear normal to inspection, no mastoid TTP, swelling, or erythema, Nasal turbinates WNL, no nasal discharge. Normal dentition, Posterior pharynx WNL, no exudate. Chest: RRR, Normal S1, S2, distal pulses intact. Resp: Lungs clear to auscultation bilaterally, no wheezes, rales, or rhonchi. Abdomen: Soft, non-distended, Normoactive bowel sounds all 4 quads. Right flank pain. Musculoskeletal: Normal gait, 5/5 strength to all four extremities. Skin: No suspicious rashes or lesions. Capillary refill less than 2 sec. Neurologic: Cranial nerves II-XII intact. Alert and oriented x 3. Motor: No deficits noted. Sensory: Intact bilaterally all 4 extremities. Reflexes: DTR's intact bilaterally.. Hematologic/Lymphatic: No ecchymosis, no lymphadenopathy. Course Vital Signs Vital signs: Vital Signs Temperature 36.8 C 12/02/21 11:10 Pulse 88 12/02/21 11:10 Respiratory Rate 18 12/02/21 11:10 Blood Pressure 135/86 12/02/21 11:10 Pulse Oximetry 99 12/02/21 11:10 Temperature 36.8 C 12/02/21 11:10 Temperature Source Skin 12/02/21 11:10 Pulse 88 12/02/21 11:10 Respiratory Rate 18 12/02/21 11:10 Blood Pressure 135/86 12/02/21 11:10 Blood Pressure Position Sitting 12/02/21 11:10 Pulse Oximetry 99 12/02/21 11:10 Oxygen Delivery Method Room Air 12/02/21 11:10 Oxygen Flow Rate 0 12/02/21 11:10 Pain Level 7 12/02/21 11:10
[2021-12-02 12:52] LABS: Bilirubin Moderate (Negative); Blood Moderate (Negative); Clarity Clear (Clear); Glucose Negative (Negative); Ketones Negative (Negative); Leukocyte Esterase Small (Negative); Nitrite Negative (Negative); Specific Gravity >= 1.030 (1.005-1.025)
[2021-12-02 13:09] LABS: Bacteria Rare HPF (Negative); C & S Indicated? Yes; Casts 0-2 Hyaline LPF (Negative); Crystals Negative HPF (Negative); Epithelial Cells Few HPF (Negative); Mucus Negative (Negative)
[2021-12-02 13:24] VITALS: BP 142/95; PULSE 77; TEMP 35.7; O2SAT 98
[2021-12-02 13:39] LABS: Abs Immature Grans 0.02 10^3/uL (0.0-0.06); Absolute Basophil Count 0.06 10^3/uL (0.0-0.2); Absolute Eosinophil Count 0.36 10^3/uL (0.0-0.7); Absolute Lymphocyte Count 1.01 10^3/uL (1.2-3.4); Absolute Monocyte Count 0.43 10^3/uL (0.1-0.8); Absolute Neutrophil Count 4.48 10^3/uL (1.2-6.7); Basophils % 0.9; Eosinophils % 5.7; HCT 37.9 % (40.0-50.0); HGB 12.6 g/dL (13.5-17.5); Immature Grans % 0.3; Lymphocytes % 15.9; MCH 32.7 pg (27.0-33.0); MCHC 33.2 % (32.0-36.0); MCV 98 fL (80-95); MPV 11.4 fL (8.0-11.0); Monocytes % 6.8; Neutrophils % 70.4; Platelet Count 263 10^3/uL (130-400); RBC 3.85 10^6/uL (4.36-5.78); RDW 13.6 % (11.8-14.1); RDW-SD 49.7 fL; WBC 6.36 10^3/uL (4.4-10.8)
[2021-12-02] MEDS: Ondansetron O.D.T. 4 MG TABEF PO (13:45)
[2021-12-02] MEDS: HYDROmorphone 2 MG/ML SYR 1 MG IVP (13:45)
[2021-12-02] MEDS: Normal Saline 1,000 ML 1000 ML IV (13:45)
[2021-12-02 14:24] LABS: ALT 181 U/L (16-63); AST 100 U/L (15-37); Albumin 2.8 g/dL (3.4-5.0); Alkaline Phosphatase 1049 U/L (46-116); Anion Gap 6.1 mmol/L (3-11); BUN 14 mg/dL (7-18); Bilirubin, Total 5.5 mg/dL (0.2-1.0); CO2 27.9 mmol/L (21.0-32.0); CREATININE 0.7 mg/dL (0.70-1.30); Chloride 101 mmol/L (98-107); Glucose 257 mg/dL (74-106); Potassium 3.8 mmol/L (3.5-5.1); Sodium 135 mmol/L (136-145); Total Protein 8.3 g/dL (6.4-8.2)
--- NOTE | 2021-12-02 14:33 | NUR.NOTE ---
Nursing Note: Pt info faxed to urology for follow up next week for a right sided kidney stone. [place], ED
== END 2021-12-02 14:52 | disposition home or self-care (01) ==
PROVIDERS: Emergency Provider Registered Nurse Emergency
DX: N20.2 Calculus of kidney with calculus of ureter (principal); K29.80 Duodenitis without bleeding; R94.5 Abnormal results of liver function studies
CPT/HCPCS: 36415; 80053; 96361; 96374; 99284; 74176; 81003; 81015; 85025; 87086; J1170

== ENCOUNTER 2024-04-25 22:51 | Outpatient (REF) | payer OTHER, SELFPAY ==
[2024-04-25 17:42] LABS: Bilirubin Small (Negative); Blood Large (Negative); Clarity Sl Cloudy (Clear); Glucose Negative (Negative); Ketones Negative (Negative); Leukocyte Esterase Small (Negative); Nitrite Negative (Negative); Urobilinogen 0.2 mg/dL (Up to 0.2); pH 5.5 (5-8)
[2024-04-25 17:53] LABS: Bacteria Moderate HPF (Negative); C & S Indicated? Yes; Casts Negative LPF (Negative); Crystals Negative HPF (Negative); Epithelial Cells Few HPF (Negative); Mucus Negative (Negative); Other Cells Rare Yeast (Negative); WBC >50 HPF (0-5)
== END 2024-04-25 22:52 | disposition home or self-care (01) ==
LOC: LBN 22:51
PROVIDERS: Visit Provider Family Medicine
DX: R30.0 Dysuria (principal); R82.89 Other abnormal findings on cytological and histological examination of urine
CPT/HCPCS: 81003; 81015; 87086

== ENCOUNTER 2024-05-16 20:03 | Outpatient (REF) | payer OTHER, SELFPAY ==
[2024-05-16 19:21] LABS: Bilirubin Negative (Negative); Blood Large (Negative); Clarity Clear (Clear); Glucose Negative (Negative); Ketones Negative (Negative); Leukocyte Esterase Small (Negative); Nitrite Negative (Negative); Specific Gravity 1.015 (1.005-1.025); Urobilinogen 0.2 mg/dL (Up to 0.2); pH 5.5 (5-8)
[2024-05-16 19:31] LABS: Bacteria Rare HPF (Negative); C & S Indicated? C&S Done As Ordered; Casts Negative LPF (Negative); Crystals Negative HPF (Negative); Epithelial Cells Few HPF (Negative); Mucus Trace (Negative); RBC >50 HPF (0-2)
== END 2024-05-16 20:04 | disposition home or self-care (01) ==
LOC: LBN 20:03
PROVIDERS: Visit Provider Family Medicine
DX: N39.0 Urinary tract infection, site not specified (principal); R35.89 Other polyuria
CPT/HCPCS: 81003; 81015; 87086

== ENCOUNTER 2024-06-13 15:46 | Outpatient (REF) | payer OTHER, SELFPAY ==
[2024-06-14 10:05] LABS: Clarity Sl Cloudy (Clear)
[2024-06-14 10:06] LABS: Bilirubin Small (Negative); Blood Large (Negative); Glucose Negative (Negative); Ketones Negative (Negative); Leukocyte Esterase Large (Negative); Nitrite Negative (Negative); Specific Gravity 1.025 (1.005-1.025); pH 5.5 (5-8)
[2024-06-14 10:11] LABS: C & S Indicated? C&S Done As Ordered; WBC >50 HPF (0-5)
== END 2024-06-13 15:47 | disposition home or self-care (01) ==
LOC: LBN 15:46
PROVIDERS: Visit Provider Nurse Practitioner
DX: Z87.442 Personal history of urinary calculi (principal); R30.9 Painful micturition, unspecified
CPT/HCPCS: 81003; 81015; 87086

== ENCOUNTER 2024-06-21 13:10 | Inpatient (IN) | payer OTHER, SELFPAY ==
[2024-06-21 14:52] VITALS: BP 124/74; PULSE 101; RESP 20; TEMP 37.3; O2SAT 96
[2024-06-21] MEDS: HYDROmorphone 2 MG TAB PO (15:29)
--- NOTE | 2024-06-21 15:38 | W.PC.ACHO ---
Registration Status: Primary Language: Preferred Language: Medical / Surgical History (Last Reviewed 12/02/21 @ 13:23 by Samina Camargo NP) Kidney stones (05/06/14) Lumbar disc prolapse with compression radiculopathy History of kidney stones Stricture of bile duct Ulcerative colitis (Last Reviewed 12/02/21 @ 13:23 by Samina Camargo NP) History of liver biopsy History of tonsillectomy and adenoidectomy Previous back surgery ERCP Colonoscopy - MAC (06/01/11) Cholecystectomy (04/06/11) Most Recent Vital Signs Temperature 37.3 C 06/21/24 14:52 Pulse 101 H 06/21/24 14:52 Pulse Rhythm Regular 06/21/24 14:52 Respiratory Rate 20 06/21/24 14:52 Respiratory Effort Normal 06/21/24 14:52 Respiratory Depth Normal 06/21/24 14:52 Respiratory Pattern Normal 06/21/24 14:52 Blood Pressure 124/74 06/21/24 14:52 Pulse Oximetry 96 06/21/24 14:52 Oxygen Delivery Method Room Air 06/21/24 14:52 Oxygen Flow Rate 0 06/21/24 14:52 Pain Level 9 06/21/24 14:52 Allergies midazolam (From Versed) Adverse Reaction (Unknown, Verified 04/20/20 15:27) Pt states being advised by MD to avoid Active Medications Generic Name Dose Route Start Last Admin Trade Name Kulwinderq PRN Reason Stop Dose Admin Hydromorphone HCl 2 mg 06/21/24 14:00 06/21/24 15:29 Hydromorphone 2 Mg Tab PO 2 mg Q4H AURY Administration Diet Orders Category Date Time Status Regular/Normal [DIET] Nutrition 06/21/24 Dinner Active Intake and Output - 24 Hour Total 06/21/24 thru 06/21/24 14:52 Weight 84.822 kg Falls Risk Assessment History of Falls No History 06/21/24 14:52 Ambulatory Aids Independent 06/21/24 14:52 Tubes/Lines None 06/21/24 14:52 Gait Evaluation No gait disturbance 06/21/24 14:52 Cognition No cognitive impairment 06/21/24 14:52 Fall Total Score 0 06/21/24 14:52 Level of Risk Standard/Low Risk 06/21/24 14:52 v v v v v v v v v Sending and/or Receiving Nurses: Please use comment section below to note any information pertinent to the patient hand-off not included above. Information / Comments: Report received from: Direct admit. Ambulatory, with Dad. Arrived in the unit 1443. Admitted to Rm. 230
--- NOTE | 2024-06-21 15:43 | HPE_ITS ---
Date of service: 06/21/24 Time of Service: 15:15 Assessment and Plan Assessment and plan (1) Hepatic encephalopathy: Status: Acute Assessment and plan: Homar says he Will take lactulose bid as directed. Mentally cloudy today compared to baseline. (2) Kidney stones: Status: Chronic Assessment and plan: Managed by nephrology. Not part of hospice diagnosis. No CVAT today on exam. (3) Left inguinal hernia: Status: Acute Assessment and plan: Causing some pain. Wanted to be seen by Dr Fernandez as outpatient for this issue. (4) Abdominal distension: Status: Acute Assessment and plan: Likely due to mostly ascites but abdominal exam a bit different from usual. Defer to Dr Fernandez's exam and evaluation. (5) Ascites: Status: Acute (6) Hospice care patient: Status: Acute Assessment and plan: Here on symptom management. Tried to reduce ascites at home with increased doses of 2 types of diuretics but no improvement. He is not tolerating dry mouth. Hates taking diuretics before going out of the house. ALso says that hydromorphone orally is not as effective. He is often nauseated so sometimes skips doses. Will change to subcutaneous hydromorphine. (7) Primary biliary cirrhosis: Status: Acute Assessment and plan: Reason he is on hospice. FIrst noted on liver biopsy in 2020. More rapid progression of disease over last 6 months. He is hospice eligible. History of Present Illness History of Present Illness Chief Complaint: painful ascites, primary biliary cirrhosis, nausea, pain Narrative: Homar is a 48 yo man with several years of primary biliary cirrhosis who elected to come on hospice after discussion with his long-term GI specialist at [facility], Dr Magana, and his palliative care provider at [facility], Dr. Jane. His PBC has progressed over the last year to the point where he was evaluated for possible liver transplant. After meeting with transplant specialist team, he decided against this. He then opted for hospice. He last had a paracentesis done in March 2024. He had been getting them done about every 3 months prior to coming on hospice. His abdomen is distended but not completely tense, especially not in his LLQ. He is slightly confused, but still has capacity. He appears to have some hepatic encephalopathy. He has not been taking his lactulose bid, but sometimes takes it once a day. His father recently moved in with him. Homar's pain is complicated by two other health problems he is facing, neither related to his hospice diagnosis. He has chronic kidney stones and sees nephrology for them. He is due to an open procedure to remove a large stone in August. He also has an easily palpable left inguinal hernia with palpable bowel in his left testis. He wanted to see Dr Fernandez for this issue as an appointment. I have consulted Dr Fernandez, general surgeon, to evaluate Homar and do a paracentesis if indicated. His abdominal exam is a bit different from other patients I've cared for with ascites (not as tense). He is being admitted for SYMPTOM management, as the hospice team first tried to reduce his ascites with oral diuretics and treat his increased abdominal pain with oral opiods, without success. Review of Systems Constitutional Constitutional: Reports difficulty sleeping, Reports fatigue, Reports lethargy and Reports weakness Eyes Eyes: Reports dry eyes and Reports requires corrective lenses ENT Ears, Nose, Mouth, and Throat: Reports dry mouth Cardiovascular Cardiovascular: Reports pedal edema, Reports leg edema and Reports dyspnea on exertion Respiratory Respiratory: Reports dyspnea on exertion Gastrointestinal Gastrointestinal: Reports abdominal pain, Reports bloating, Reports early satiety and Reports nausea Genitourinary Genitourinary: Reports flank pain, Reports testicular mass and Reports testicular pain Musculoskeletal Musculoskeletal: Reports abnormal gait, Reports back pain, Reports atrophy and Reports muscle weakness Integumentary/Breasts Skin/Breast: Reports breast swelling, Reports change in breast shape, Reports change in pigmentation, Reports dry skin and Reports pruritus Comments: +gynecomastia--new Neurologic Neurologic: Reports abnormal gait, Reports confusion, Reports memory loss (due to his hepatic encephalopathy ), Reports restless legs (better with pramipexole) and Reports weakness Psychiatric Psychiatric: Reports anxiety, Reports confusion, Reports depression, Reports difficulty concentrating and Reports memory loss (due to his hepatic encephalopathy ) Endocrine Endocrine: Reports fatigue PFSH All Active Problems Cirrhosis of liver (Chronic) due to primary biliary cirrhosis Hepatic encephalopathy (Acute) Edema (Acute) Kidney stones (Chronic 05/06/14) Left inguinal hernia (Acute) Abdominal distension (Acute) Ascites (Acute) DNI (do not intubate) (Acute) DNR (do not resuscitate) (Acute) Hospice care patient (Acute) Primary biliary cirrhosis (Acute) Internal derangement of left knee (Acute) Injection: 11/14/2018 Peroneal tendinitis of left lower leg (Acute) Synovitis of right knee (Acute) Arthrofibrosis of total knee arthroplasty (Acute) S/P manipulation: 12/17/2019 Status post total knee replacement, right (Acute 10/30/19) Medical History Lumbar disc prolapse with compression radiculopathy S/P surgery History of kidney stones Stricture of bile duct Ulcerative colitis Surgical History History of liver biopsy History of tonsillectomy and adenoidectomy Previous back surgery spina occulta fusion in ERCP 09/16/14 [facility] Colonoscopy - MAC (06/01/11) [facility]-ULCERATIVE COLITIS Cholecystectomy (04/06/11) Family History Mother No problems noted. Father Essential hypertension Heart disease ANEURYSM Hyperlipidemia Sister No problems noted. Grandfather No problems noted. Grandfather Heart disease Myocardial infarction Grandmother Essential hypertension Stroke Grandmother Essential hypertension Heart disease ANEURYSM Hyperlipidemia Stroke Social History (Updated 06/21/24 @ 16:02 by Lashonda Durand MD) Smoking/Tobacco Use Status: Never Smoking risk assessment performed?: Yes Alcohol Intake: never Drug use: Never Substance use type: does not use Adopted: No Caregiver/Support person: Yes Household members: family Housing: house Number of Children: 0 Communication Needs: Corrective Lenses Education Level: master's degree Do you need help understanding health information?: Often 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 Pets and animals: No Current gender identity: male What is your relationship status?: never How often do you talk on the phone with friends or family?: three or more times per week How often do you get together with friends or relatives?: three or more times per week Panel score (0-1 are the most socially isolated patients): 1 What type of physical activity do you participate in: none and sedentary lifestyle Seatbelt use: always Working smoke detector in home: Yes Fire extinguisher in home: Yes Firearms in home: Yes Do you feel safe at home: Yes Additional Social history: Homar lives with his father, Malcolm. Malcolm moved in with Homar around the time Homar came on hospice. Homar inherited his house from his beloved grandmother. He only recently retired due to his illness. Worked at [employer] for since he was in his mid-20s. Meds Allergies and Home Medications Allergies Allergy/AdvReac Type Severity Reaction Status Date / Time midazolam (From Versed) AdvReac Unknown Pt states Verified 04/20/20 15:27 being advised by MD to avoid Home Medications ?Medication ?Instructions ?Recorded ?Confirmed ?Type acetaminophen 500 mg tablet 1,000 mg (2 x 500 mg) PO Q8H PRN 01/06/20 10/26/20 Rx pain #90 tabs lorazepam 1 mg tablet 1 mg PO Q4H PRN PRN anxiety #30 04/19/24 Rx tabs polyethylene glycol 3350 17 17 g PO DAILY #510 grams 04/25/24 Rx gram/dose oral powder (Miralax) pantoprazole 20 mg tablet,delayed 20 mg PO DAILY #90 tabs 04/30/24 Rx release pramipexole 0.5 mg tablet 0.5 mg PO QHS #30 tabs 05/14/24 Rx prochlorperazine maleate 10 mg 10 mg PO Q6H PRN nausea and 06/04/24 Rx tablet vomiting #30 tabs cephalexin 500 mg capsule 500 mg PO BID #14 caps 06/17/24 Rx hydromorphone 2 mg tablet 2 mg PO Q4H #90 tabs 06/17/24 Rx morphine concentrate 100 mg/5 mL 5 - 20 mg (0.25 - 1 mL) PO Q1H PRN 06/17/24 Rx (20 mg/mL) oral solution PRN pain #30 mL Exam Narrative Exam Narrative: Homar was alternating between lying back in bed and sitting at side of bed. He has a protuberant belly. He doesn't look acutely uncomfortable. His skin is sallow. He is slightly confused, off from his normal. eyes anicteric, wearing glasses heent mm are dry, hearing intact neck no lad or jvd lungs ctab heart regular, borderline tachy abd distended and firm on right side, softer on left side, + bs wnl has palpable bowel in left testis tender in left inguinal region skin sallow, chest + gynecomastia (new) ext +2 edema in left foot to just above ankle, right +1 psych anxious at baseline neuro vague intermittently, + word searching, more confused than baseline back no CVAT despite report of recent stones Results Imaging CT scan - pelvis: report reviewed (from November 2021; liver reported as normal) Last Vital Signs Temp 99.1 F 06/21/24 14:52 Pulse 101 H 06/21/24 14:52 Resp 20 06/21/24 14:52 BP 124/74 06/21/24 14:52 Pulse Ox 96 06/21/24 14:52 Time Spent Time spent with Patient: >75 minutes Time was spent: preparing to see the patient(eg.review tests), obtaining and/or reviewing separately otained hiistory, ordering medications,tests, procedures, referring, communicating with other health neonatal intensive care unit nurse, counseling the patient and care coordination
[2024-06-21 16:12] VITALS: BP 116/73; PULSE 92; RESP 16; TEMP 36.6; O2SAT 96
[2024-06-21] MEDS: HYDROmorphone 100 MG in CADD PUMP CASSETTE 1 EACH, Normal Saline 90 ML SC_INF (17:00)
--- NOTE | 2024-06-21 18:15 | CHAPLAIN ---
Homar was a direct admit this afternoon from hospice for symptom management, specifically painful ascites. He is very pleasant and easily engaged in conversation. He shared some personal history. 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 He said at times he is comfortable with his prognosis and other times wondering why me. He has been able to have significant conversations with his dad, with whom he lives, as well as sister and an aunt. He said he can call his sister when he is in need of additional support. He has met with the dewatering filtering supervisor a few times. Homar's grandmother, with whom he lived not long ago, and his mom, have and he said he wonders what they are thinking about what he needs to know about his situation. He believes there are things he can't understand the reasoning for, but he trust God reasoning.
[2024-06-21] MEDS: Prochlorperazine 10 MG TAB PO (20:34)
[2024-06-21] MEDS: Senna TAB PO (21:07)
[2024-06-21] MEDS: Pramipexole 0.5 MG TAB PO (21:07)
[2024-06-21] MEDS: Lactulose 20 GM/30 ML CUP PO (21:07)
[2024-06-21] MEDS: Normal Saline Flush 10 ML SYR (21:20)
[2024-06-21] MEDS: Bisacodyl 10 MG SUPP PR (22:46)
--- NOTE | 2024-06-22 | DI.CT_ITS ---
Exam(s) CT ABDOMEN PELVIS WO EXAM: CT ABDOMEN PELVIS WO CLINICAL HISTORY: inguinal hernia. TECHNIQUE: Imaging Protocol: Axial computed tomography images with coronal and sagittal reformatted images were created and reviewed. COMPARISON: CT CT ABDOMEN PELVIS WO from 12/02/2021 FINDINGS: Lack of IV contrast does limit evaluation of the abdominal pelvic organs. ABDOMEN: Lung Bases: There is a small left pleural effusion. Coronary artery calcifications are present. The heart is mildly enlarged. There are infiltrates seen in lower lobes bilaterally. Liver: The liver has a nodular contour suggesting hepatic cirrhosis. No measurable mass. Gallbladder and biliary tract: Status post cholecystectomy. The common duct appears stable Pancreas: Normal density, no abnormal calcifications or inflammatory process. Spleen: There is marked splenomegaly. The spleen measures 22 cm long. There are varices in the left upper quadrant of the abdomen. Kidneys: There is a right nephroureteral stent. There are multiple stones seen in the lower pole of the right kidney. The largest measures 1.4 cm.There is a 6 mm stone in the mid left ureter causing m oderate hydronephrosis. There is a nonobstructing 3 mm stone in the inferior pole of the left kidney . Since the prior examination there has been slight decrease in size of the right kidney. The left kidney is enlarged. There is perinephric stranding around the left kidney. Adrenal glands: No mass is seen. Lymph nodes: There are enlarged retroperitoneal lymph nodes present. There also enlarged iliac lymph nodes. The largest lymph node is adjacent to the left external iliac arteries and measures 1.8 cm. This was present on the prior examination. There has been an increase in the retroperitoneal/para-a ortic adenopathy. Abdominal Aorta: Abdominal portion non-dilated. Mild atherosclerotic calcification is present. PELVIS: Bladder:Symmetric distention, no gross wall thickening. Bowel: There is mild thickening of the wall of the rectosigmoid colon which may represent inflammatio n/infection. There is no evidence of bowel obstruction. There is no pneumatosis or portal venous ga s. The stomach is incompletely distended limiting evaluation. No evidence of appendicitis. Peritoneal cavity: There is a moderate amount of abdominal ascites and a small amount of pelvic ascit es. No free air. Reproductive organs: Unremarkable as visualized. Bones: Within normal limits for the patient's age. Soft Tissues: There is a moderately large left inguinal hernia containing fluid and fat. There is no bowel seen within the hernia. IMPRESSION: 1. 6 mm stone in the mid right ureter causing moderate hydronephrosis. 2. Moderately large left inguinal hernia containing fluid and fat. There is no bowel seen within the hernia. 3. Mild thickening of the wall of the rectosigmoid colon suspicious for proctitis/colitis. 4. Findings suggestive of hepatic cirrhosis with portal venous hypertension, abdominal varices, ascit es and marked splenomegaly. 5. Small left pleural effusion. 6. Bilateral basilar infiltrates. This may represent atelectasis, scarring or pneumonia. Please cor relate clinically. 7. Retroperitoneal and pelvic adenopathy. 8. Right nephroureteral stent. RADIATION DOSE DELIVERED: 978.7mGy.cm Total DLP DATA REPOSITORY: All CT scans at this facility are submitted to the National Radiology Data Registry (NRDR) Dose Index Registry (DIR) with the [employer] (ACR). RADIATION OPTIMIZATION: All CT scans at this facility use at least one of these dose optimization te chniques: automated exposure control; mA and/or kV adjustment per patient size (includes targeted exa ms where dose is matched to clinical indication); or iterative reconstruction.
--- NOTE | 2024-06-22 07:07 | SCONE_ITS ---
Date of service: 06/21/24 Time of Service: 21:00 Assessment and Plan Assessment and plan (1) Abdominal distension: Status: Acute Assessment and plan: I did perform a limited ultrasound of the abdomen today, and he certainly has some ascites. There is 2 obvious pockets, one is on the left flank the others on the right. They are relatively small volume compared to other patients with symptomatic abdominal ascites. He is also quite tympanitic compared to some other patients, and I can clearly see some signs of bowel distention on the ultrasound. With the assistance of steep Trendelenburg positioning, I was able to reduce the left-sided inguinal hernia quite easily. Interestingly, Homar did notice a change in the character of his abdominal discomfort as we did that. Currently, I think the inguinal hernia is probably the most compelling source of his abdominal symptoms. Obviously, the situation is a little bit challenging giving his comorbidities, and his tendency towards a palliative rather than curative intent for his liver disease. Homar and I talked through multiple scenarios trying to sort out the best way to deal with his abdominal discomfort, and preserve any and all options if he ever were to pursue the idea of a liver transplant. I think a CT scan of the abdomen would be most useful here to better characterize and quantify the distribution of his ascites, and shed any light with regards to how the hernia is impacting his GI tract as a whole. I have talked to Oksana and Homar, and maybe we should give strong consideration to admitting him with a chief diagnosis of a symptomatic inguinal hernia in an effort to work that up so that we can maximize his therapeutic options. History of Present Illness History of Present Illness Chief Complaint: Abdominal pain Narrative: Homar is 48 years old. He has been diagnosed with primary biliary cirrhosis with sequelae of his ongoing liver disease. He has undergone therapeutic paracentesis with some improvement of his symptoms. As best I understand, the last paracentesis was in March 2024. He believes he had about 2 or 3 L removed at that time. Over the past week or so he had increasing abdominal discomfort, tends to be a little more on the left side than on the right side. He has had a couple episodes of nausea and vomiting, and a little bit of general loss of appetite. He is also known to have a left-sided inguinal hernia. He met with another surgeon prior to this, who discouraged him from repair. In the interim, he thinks that the hernia may have increased in size a little bit. He does have more discomfort in his scrotum associated with that hernia. Review of Systems Constitutional Constitutional: Reports fatigue and Reports poor appetite Eyes Eyes: Reports system reviewed and no additional complaints, except as documented ENT Ears, Nose, Mouth, and Throat: Reports system reviewed and no additional complaints, except as documented Cardiovascular Cardiovascular: Denies chest pain and Reports dyspnea on exertion Respiratory Respiratory: Denies chest congestion, Denies cough and Reports dyspnea on exertion Gastrointestinal Gastrointestinal: Reports abdominal pain, Reports constipation and Reports early satiety Genitourinary Genitourinary: Denies dysuria and Reports scrotal swelling Endocrine Endocrine: Reports fatigue Hematologic/Lymphatic Hematologic/Lymphatic: Denies easy bleeding and Denies easy bruising PFSH All Active Problems Cirrhosis of liver (Chronic) due to primary biliary cirrhosis Hepatic encephalopathy (Acute) Edema (Acute) Kidney stones (Chronic 05/06/14) Left inguinal hernia (Acute) Abdominal distension (Acute) Ascites (Acute) DNI (do not intubate) (Acute) DNR (do not resuscitate) (Acute) Hospice care patient (Acute) Primary biliary cirrhosis (Acute) Internal derangement of left knee (Acute) Injection: 11/14/2018 Peroneal tendinitis of left lower leg (Acute) Synovitis of right knee (Acute) Arthrofibrosis of total knee arthroplasty (Acute) S/P manipulation: 12/17/2019 Status post total knee replacement, right (Acute 10/30/19) Medical History Lumbar disc prolapse with compression radiculopathy S/P surgery History of kidney stones Stricture of bile duct Ulcerative colitis Surgical History History of liver biopsy History of tonsillectomy and adenoidectomy Previous back surgery spina occulta fusion in 1989' ERCP 09/16/14 [facility] Colonoscopy - MAC (06/01/11) [facility]-ULCERATIVE COLITIS Cholecystectomy (04/06/11) Family History Mother No problems noted. Father Essential hypertension Heart disease ANEURYSM Hyperlipidemia Sister No problems noted. Grandfather No problems noted. Grandfather Heart disease Myocardial infarction Grandmother Essential hypertension Stroke Grandmother Essential hypertension Heart disease ANEURYSM Hyperlipidemia Stroke Social History (Updated 06/21/24 @ 16:02 by Lashonda Durand MD) Smoking/Tobacco Use Status: Never Smoking risk assessment performed?: Yes Alcohol Intake: never Drug use: Never Substance use type: does not use Adopted: No Caregiver/Support person: Yes Household members: family Housing: house Number of Children: 0 Communication Needs: Corrective Lenses Education Level: master's degree Do you need help understanding health information?: Often 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 Pets and animals: No Current gender identity: male What is your relationship status?: never How often do you talk on the phone with friends or family?: three or more times per week How often do you get together with friends or relatives?: three or more times per week Panel score (0-1 are the most socially isolated patients): 1 What type of physical activity do you participate in: none and sedentary lifestyle Seatbelt use: always Working smoke detector in home: Yes Fire extinguisher in home: Yes Firearms in home: Yes Do you feel safe at home: Yes Additional Social history: Homar lives with his father, Malcolm. Malcolm moved in with Homar around the time Homar came on hospice. Homar inherited his house from his beloved grandmother. He only recently retired due to his illness. Worked at [employer] for since he was in his mid-20s. Exam Const General: cooperative and comfortable Orientation: alert, awake and oriented x3 HENMT Head: normal to inspection Eyes General: appearance normal, both eyes and all related structures Neck Neck: normal visual inspection and full ROM Resp Effort & Inspection: decreased respiratory effort (He has some difficulty with deep inspiration because of distention) Auscultation: clear to auscultation bilaterally Cardio Rate: regular rate Rhythm: regular rhythm Heart Sounds: S1 normal and S2 normal GI Inspection: distended Percussion: tympanic to percussion Auscultation: normal bowel sounds Other: Reducible left inguinal hernia, ascites by ultrasound Results Last Vital Signs Temp 97.9 F 06/21/24 16:12 Pulse 92 H 06/21/24 16:12 Resp 16 06/21/24 16:12 BP 116/73 06/21/24 16:12 Pulse Ox 96 06/21/24 16:12
[2024-06-22 07:25] VITALS: BP 137/73; PULSE 95; RESP 18; TEMP 36.1; O2SAT 93
[2024-06-22] MEDS: Spironolactone 50 MG TAB PO (08:20)
[2024-06-22] MEDS: Lactulose 20 GM/30 ML CUP PO (08:20)
[2024-06-22] MEDS: Pantoprazole 20 MG TABCR PO (08:21)
[2024-06-22] MEDS: Furosemide 40 MG TAB PO (08:22)
--- NOTE | 2024-06-22 08:55 | DSE_ITS ---
Date of service: 06/22/24 Time of Service: 08:55 DS: Diagnosis Discharge Diagnosis (1) Abdominal distension: Status: Acute Asessment and Plan: Homar will transfer to surgical service for investigation on his inguinal hernia, thought to be contributing to his pain after evaluation and reduction w/good relief yesterday. - see surgical consult for more details (2) Cirrhosis of liver: Status: Chronic (3) Hepatic encephalopathy: Status: Acute Asessment and Plan: goal of lactulose BID Homar prefers sipping slowly, not interested in trying w/OJ today bowels x2 this morning improved clarity compared to yesterday (4) Edema: Status: Acute Asessment and Plan: continue furosemide and spironolactone 2+ BLE today, primary in ankles (5) Left inguinal hernia: Status: Acute Asessment and Plan: surgery to evaluate today, CT scans potential correction TBD will remain on under surgical service pending POC, transfer back to hospice service once completed (6) Hospice care patient: Status: Acute Asessment and Plan: Homar was hospitalized for symptom management for abdominal distention and pain. Surgical consult yesterday, see note. Homar would like to pursue work up for inguinal hernia, agrees to transferring service as it is unrelated to his hospice diagnosis will continue all comfort order medications at this time, with two changes below - hydromorphone pump 0.4mg/hr basal rate, increase bolus to 0.4mg q15m PRN - miralax changed to PRN Discharge Plan Disposition Patient Disposition: Transfer-Acute Inpatient Care Specific Acute Inpt Facility: Other Condition: Stable Discharge Details Reason For Visit: painful ascites, needs parencentesis, PBS Admit Date/Time: 06/21/24 13:10 Admit Provider: Lashonda Durand Attending Provider: Lashonda Durand Primary Care Provider: None,None Hospital Course Hospital Course: Homar was admitted 06/21/24 for hospice symptom management w/abdominal distention - surgical consult: small volume of symptomatic ascites, w/bowel distention, good relief of pain w/reduction of inguinal hernia; conversation w/patient, preference for pursuing potential hernial correction. to start w/CT scans Pain: is better since starting hydromorphone pump yesterday, at 0.4mg/hr basal, bolus of 0.2mg q15m PRN, he received 4 boluses overnight. Homar doesn't feel like bolus dose is working as well as it was. comfortable w/not changing basal rate, aware may increase rate at any time. We increased the bolus rate to 0.4mg q15m PRN today, continue to monitor. rates today's pain as 7/10, worse in back from abdomen, consistent w/previous reports BM: moved bowels twice this morning. He did take his lactulose yesterday. He struggles w/this at home, does not like the taste, does not like moving his bowels so frequently, charo when wants to leave house. he is aware that lactulose helps clear ammonia, to help him think more clearly, he is on board w/continuing lactulose, would prefer once daily if he is moving bowels - refused miralax this AM d/t moving bowels, miralax was scheduled Thinking more clearly today His father is aware he is going to have hernia work up, hospice nurse to call dad to review current POC Homar is happy to be in [facility], happy w/care he is receiving, aware he may stay for a few more days pending what work-up says. His goal is to prolong his quality of life, and he feels inguinal hernia pain is certainly contributing to a reduced QoL. Homar will transfer to surgical service for appropriate work up and management of inguinal hernia, as it is unrelated to his hospice diagnosis - to transfer back to hospice service pending POC w/work-up with surgery Hospice available for consult at any time Home Meds and New Rx's Prescriptions: No Action acetaminophen 500 mg tablet 1,000 mg PO Q8H PRN (Reason: pain) Qty: 90 3RF lorazepam 1 mg tablet 1 mg PO Q4H PRN PRN (Reason: anxiety) Qty: 30 5RF Rx Instructions: hospice patient polyethylene glycol 3350 [Miralax] 17 gram/dose powder 17 g PO DAILY Qty: 510 0RF pantoprazole 20 mg tablet,delayed release (DR/EC) 20 mg PO DAILY Qty: 90 2RF pramipexole 0.5 mg tablet 0.5 mg PO QHS Qty: 30 3RF prochlorperazine maleate 10 mg tablet 10 mg PO Q6H PRN (Reason: nausea and vomiting) Qty: 30 8RF Rx Instructions: hospice hydromorphone 2 mg tablet 2 mg PO Q4H MDD 14 mg Qty: 90 0RF Rx Instructions: hospice morphine concentrate 100 mg/5 mL (20 mg/mL) solution 5 - 20 mg PO Q1H PRN MDD 480 PRN (Reason: pain) Qty: 30 0RF Rx Instructions: hospice patient cephalexin 500 mg capsule 500 mg PO BID Qty: 14 0RF Rx Instructions: hospice patient Discharge Instructions Activity:: Activity as Tolerated Equipment/Supplies:: No Equipment Needed Diet:: As Tolerated DS: Summary Time Spent with Patient providing and/or coordinating discharge services: Greater than 30 minutes Specific discharge activities: coordination w/nursing, access and surgical team; direct pt care Status at Discharge Functional status at discharge: independent ambulation Overall status at discharge: patient is progressing back to baseline Mental Status: mental status grossly normal Speech and Movement: speech and movement normal Mood: congruent mood Affect: normal affect Quality:SDOH Health Related Social Needs: Health related social needs housing instability, house d, with risk of homelessness (Z59.811), education (Z55.6) Exam Narrative Exam Narrative: General: transfer from bed to chair w/1 person stand by assist at start of visit; sitting in recliner throughout visit; HEENT: hearing grossly WNL, normocephalic, atraumatic, swallows eggs and fluids appropriately during visit Resp: even and unlabored, LS CTA, increased pain in back w/deep respirations, speaks full sentences w/no SOB;no cough Card: regular rate, regular rhythm GI: BS WNL all 4 quadrants, distention, painful w/light palpation, deferred more thorough exam d/t pain Ext: BLE 2+ pitting edema, predominately in ankles Psych: cooperative, pleasant, MS WNL, Psych Mental Status: mental status grossly normal Speech and Movement: speech and movement normal Mood: congruent mood Affect: normal affect DS: Data Vitals/I&O Vitals and I&O: Vital Signs Temperature 97.0 F L 06/22/24 07:25 Temperature Source Temporal Artery Scan 06/22/24 07:25 Pulse 95 H 06/22/24 07:25 Pulse Rhythm Regular 06/21/24 14:52 Respiratory Rate 18 06/22/24 07:25 Respiratory Effort Normal 06/21/24 14:52 Respiratory Depth Normal 06/21/24 14:52 Respiratory Pattern Normal 06/21/24 14:52 Blood Pressure 137/73 06/22/24 07:25 Pulse Oximetry 93 06/22/24 07:25 Oxygen Delivery Method Room Air 06/22/24 07:25 Oxygen Flow Rate 0 06/22/24 07:25 Pain Level 7 06/22/24 07:25 Intake & Output 06/21/24 06/21/24 06/22/24 11:59 23:59 11:59 Intake Total 4.9 / 4.9 503.9 / 503.9 Balance 4.9 / 4.9 503.9 / 503.9 Weight 187 lb Intake: IV 4.9 / 4.9 3.9 / 3.9 Oral 500 / 500 Other: Urine Color Yellow Urine Appearance Clear Stool Size Large PFSH All Active Problems Cirrhosis of liver (Chronic) due to primary biliary cirrhosis Hepatic encephalopathy (Acute) Edema (Acute) Kidney stones (Chronic 05/06/14) Left inguinal hernia (Acute) Abdominal distension (Acute) Ascites (Acute) DNI (do not intubate) (Acute) DNR (do not resuscitate) (Acute) Hospice care patient (Acute) Primary biliary cirrhosis (Acute) Internal derangement of left knee (Acute) Injection: 11/14/2018 Peroneal tendinitis of left lower leg (Acute) Synovitis of right knee (Acute) Arthrofibrosis of total knee arthroplasty (Acute) S/P manipulation: 12/17/2019 Status post total knee replacement, right (Acute 10/30/19) Medical History Lumbar disc prolapse with compression radiculopathy S/P surgery History of kidney stones Stricture of bile duct Ulcerative colitis Surgical History History of liver biopsy History of tonsillectomy and adenoidectomy Previous back surgery spina occulta fusion in 1989's [place] [facility] [place] [facility] [place] Cholecystectomy (04/06/11) Family History Mother No problems noted. Father Essential hypertension Heart disease ANEURYSM Hyperlipidemia Sister No problems noted. Grandfather No problems noted. 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 Pets and animals: No Current gender identity: male What is your relationship status?: never How often do you talk on the phone with friends or family?: three or more times per week How often do you get together with friends or relatives?: three or more times per week Panel score (0-1 are the most socially isolated patients): 1 What type of physical activity do you participate in: none and sedentary lifestyle Seatbelt use: always Working smoke detector in home: Yes Fire extinguisher in home: Yes Firearms in home: Yes Do you feel safe at home: Yes Additional Social history: Homar lives with his father, Malcolm. Malcolm moved in with Homar around the time Homar came on hospice. Homar inherited his house from his beloved grandmother. He only recently retired due to his illness. Worked at [employer] for since he was in his mid-20s. Time Spent with Patient Time Spent with Patient: <45 minutes Time was spent: preparing to see the patient(eg.review tests), obtaining and/or reviewing separately otained hiistory, referring, communicating with other health home care assistant, counseling the patient and care coordination
--- NOTE | 2024-06-22 10:46 | PHA.REVIEW2 ---
Pharmacy Admission Review Admission Clinical Review Admission Pharmacy Review: Hepatic encephalopathy (Acute) Left inguinal hernia (Acute) Abdominal distension (Acute) Ascites (Acute) Hospice care patient (Acute) Primary biliary cirrhosis (Acute) midazolam (From Versed) Adverse Reaction (Unknown, Verified 04/20/20 15:27) Pt states being advised by MD to avoid Resuscitation Status DNR/DNI Height 5 ft 7 in Weight 84.822 kg Comments Comments/Follow Ups: Patient transferred from hospice service to surgical service for potential procedure Pharmacy Admission Review Renal Dosing Medications needing adjustments: Reviewed (SCr pending) Anticoagulation DVT Prophylaxis: N/A (Hospice) Opiate Usage Evaluate Pain Scale/Pains Meds: Reviewed (hydromorphone CADD @ 0.4mg/hr) Scheduled Bowel Reg ordered if on Opiates?: Yes (Senna + PRN Miralax) Relevant Labs Electrolytes, C-Reactive P, ESR: Reviewed (INR pending) Cardiac Review BP, HR, EF%: Reviewed (HR 95) QTc Review QTc: Reviewed (No EKG on file) IV to PO Switch IV Medications: Reviewed (dexamethasone) Home Meds Home Med List reviewed: Reviewed Current Meds Current Medication Order Review: Reviewed Comments Comments/Follow Ups: Patient transferred from hospice service to surgical service for potential procedure
[2024-06-22 12:05] LABS: INR 1.5 (0.9-1.1); Prothrombin Time 14.8 sec (9.1-11.1)
[2024-06-22 12:06] LABS: Estimated GFR 17.59 (mL/min/1.73m2)
--- NOTE | 2024-06-22 14:53 | NUR.NOTE ---
[facility] chart for Dr. Fernandez to obtain lab results. Nursing Note:
--- NOTE | 2024-06-22 15:53 | W.PM.PROGNOT ---
Date of Service Date of service: 06/22/24 Time of Service: 15:53 Assessment and Plan Assessment and plan (1) Left inguinal hernia: Status: Acute Assessment and plan: I explained to Homar that I had been anticipating a CT of his abdomen and pelvis today to better characterize his hernia as well as his ascites. I sent a creatinine anticipating contrast for the CT scan. However, his creatinine is 4 today, and his GFR is estimated around 17. His INR is also up a bit. We had a long talk about what this means, and obviously has significant progression of his kidney disease since his last creatinine which appears to be around 1-1/2 sometime in February or March at [facility]. We went through multiple different scenarios, and how this relates to different interventions that may or may not be available to him. At this point, with his kidney function as the most abnormal finding, I think it is reasonable to get a basic metabolic panel, and a urinalysis to see if we can better delineate that. I will also proceed with a CT of his abdomen and pelvis without contrast. If it is the case that he has obstructing kidney stones, that may be a reasonable intervention, and I think the CT scan would be most useful to help decipher that. Subjective Subjective Interval history since last seen: Homar tells me he is feeling better today compared to the past few days, but he suspects his medications may be contributing to this. He was able to sleep last night. He still has abdominal discomfort, but it seems a little more tolerable today. Exam GI Other: Abdomen remains a bit distended, but not tense. He is not very tender today. Objective Last Vital Signs Temp 97.0 F L 06/22/24 07:25 Pulse 95 H 06/22/24 07:25 Resp 18 06/22/24 07:25 BP 137/73 06/22/24 07:25 Pulse Ox 93 06/22/24 07:25 Laboratory Results - last 24 hr 06/22/24 11:45 PT 14.8 H INR 1.5 H Creatinine 4.0 H* Est GFR (CKD-EPI 2020) 17.59 Time Spent with Patient Time Spent with Patient: >50 minutes Time was spent: preparing to see the patient(eg.review tests), ordering medications,tests, procedures, indepentently interpreting results, counseling the patient and care coordination
[2024-06-22 16:38] LABS: Bilirubin Small (Negative); Blood Large (Negative); Clarity Cloudy (Clear); Glucose Negative (Negative); Ketones Negative (Negative); Leukocyte Esterase Moderate (Negative); Nitrite Negative (Negative); Specific Gravity 1.015 (1.005-1.025); pH 5.5 (5-8)
--- NOTE | 2024-06-22 16:41 | PDOC.CMPRO ---
Date of service: 06/22/24 Time of Service: 15:00 Care Management Progress Note Progress Note Text Progress Note Text: Homar is a very nice gentleman with the unfortunate diagnosis of biliary cirrhosis. He is a hospice patient who was admitted yesterday for symptom management due to increasing abdominal discomfort, some n/v, and a distaste for food. Surgery was consulted. He was unable to have a CT with contrast, due to worsening kidney function, but he will have a CT with no contrast, to rule out obstructing kidney stones. When CM met with Homar today, he was very pleasant. He became teary at times talking about his current situation. Homar will turn 49 in July, and is hoping to make it to 50. He is concerned today about his kidney function. Homar is on a hydromorphone pump for pain control, and will go home on a pump as well. Homar lives with his Dad. Homar is independent with ADLs at this time. Discharge Potential Discharge Needs: Surgical F/U Appt and Other (hospice f/u) Anticipated Barriers to Discharge: None Identified Patient/Family Education Needs: Review discharge instructions, discuss Ask Me Three Transportation: Private vehicle (with his Dad) Plan: Anticipate that Homar will return home with no new services. He will f/u with the surgeon, and with hospice, and continue per his plan of care. Homar will tranport home via private vehicle. CM will continue to follow. Social Determinants of Health Screening Social Determinants of Health last assessed: 06/22/24 Will the Patient Participate in the Screening?: Yes Do you worry about having a steady place to live?: yes What is your living situation today?: I have housing today, but am worried about losing it Problems where you live: no known problems In the past 12 months, have you had to go without electric, gas, oil or water in your home?: no Have you or anyone in your house had to go without enough food to eat?: no Has lack of transportation kept you from medical appointments or from doing things needed for daily living?: no Has anyone in your life made you feel unsafe or unsupported?: no How hard is it for you to pay for the very basics like food, housing, medical care, and heating? Would you say it is:: Not hard at all Do you want help finding or keeping work or a job?: I do not need or want help If for any reason you need help with day-to-day activities such as bathing, preparing meals, shopping, managing finances, etc., do you get the help you need?: I don?t need any help How often do you feel lonely or isolated from those around you?: Never Do you speak a language other than Marshallese at home?: Yes Does the patient want assistance with any of the above?: No Health Related Social Needs Health related social needs: housing instability, housed, with risk of homelessness (Z59.811) and education (Z55.6) Anticipated HH Services Anticipated HH Services at Discharge [facility] Res[facility], Hospice Following Provider: Ready.
--- NOTE | 2024-06-22 17:16 | DI.VRAD_ITS ---
PROCEDURE INFORMATION: Exam: CT Abdomen And Pelvis Without Contrast Exam date and time: 06/22/2024 4:03 PM Age: 48 years old Clinical indication: Other: Inguinal hernia TECHNIQUE: Imaging protocol: Computed tomography of the abdomen and pelvis without contrast. COMPARISON: CT ABDOMEN PELVIS WO 12/02/2021 12:51 PM FINDINGS: Lungs: Extensive atelectasis in both lung bases. Liver: Cirrhotic liver. No mass or ductal dilatation. Gallbladder and biliary ducts: Normal. No calcified stones. No ductal dilation. Pancreas: Normal. No mass or ductal dilation. Spleen: Grossly enlarged spleen. The spleen measures 20 x 24 x 12 cm. Adrenal glands: Normal. No mass. Kidneys and ureters: Small stone in the lower pole of the left kidney. Left-sided hydronephrosis. There is a 6 mm stone in the mid left ureter producing obstruction. Stomach and bowel: Unremarkable. No significant dilatation or obstruction. No mucosal thickening or visible mass. Appendix: No evidence of appendicitis. Intraperitoneal space: Moderate ascites throughout the abdomen and pelvis. Vasculature: Unremarkable. No abdominal aortic aneurysm or significant atherosclerosis. Lymph nodes: No enlarged retroperitoneal or mesenteric lymph nodes. Urinary bladder: Right ureteral stent extending from the renal pelvis to the bladder. There are stones in the lower pole of the right kidney measuring up to 14 mm. Reproductive: There is a large fluid-filled left inguinal hernia extending into the scrotum. Bones/joints: Unremarkable. No acute fracture. No lytic lesion. Soft tissues: See Reproductive finding. IMPRESSION: 1. Cirrhotic liver with ascites and gross splenomegaly. 2. Fluid filled left inguinal hernia. 3. 6 mm obstructing stone mid left ureter. Dictated and Authenticated by: Pirnce Orozco MD. Orderin Jim Veliz MD
[2024-06-22 17:31] LABS: Bacteria Negative HPF (Negative); C & S Indicated? Yes; Crystals Negative HPF (Negative); Epithelial Cells Negative HPF (Negative); Mucus Negative (Negative); Other Cells Few Yeast (Negative); RBC >50 HPF (0-2); WBC >50 HPF (0-5)
[2024-06-22 19:32] LABS: ALT 38 U/L (16-63); AST 41 U/L (15-37); Albumin 1.6 g/dL (3.4-5.0); Alkaline Phosphatase 370 U/L (46-116); Anion Gap 5.9 mmol/L (3-11); BUN 46 mg/dL (7-18); Bilirubin, Direct 4.2 mg/dL (0.0-0.2); Bilirubin, Total 4.8 mg/dL (0.2-1.0); CO2 28.1 mmol/L (21.0-32.0); Calcium 7.9 mg/dL (8.5-10.1); Chloride 100 mmol/L (98-107); Estimated GFR 17.08 (mL/min/1.73m2); Glucose 189 mg/dL (74-106); Potassium 4.6 mmol/L (3.5-5.1); Sodium 134 mmol/L (136-145); Total Protein 6.7 g/dL (6.4-8.2)
[2024-06-22 19:42] LABS: CREATININE 4.1 mg/dL (0.70-1.30)
[2024-06-22] MEDS: Pramipexole 0.5 MG TAB PO (20:29)
[2024-06-23 07:41] VITALS: BP 116/67; PULSE 95; RESP 18; TEMP 36.8; O2SAT 94
[2024-06-23] MEDS: Prochlorperazine 10 MG TAB PO (07:47)
[2024-06-23] MEDS: Pantoprazole 20 MG TABCR PO (07:51)
[2024-06-23] MEDS: Ondansetron 0.8 MG/ML Solution 8 MG PO (09:58)
[2024-06-23] MEDS: Spironolactone 50 MG TAB PO (10:16)
[2024-06-23] MEDS: LORazepam 0.5 MG TAB PO (10:19)
[2024-06-23] MEDS: Furosemide 40 MG TAB PO (10:21)
--- NOTE | 2024-06-23 10:38 | PGE_ITS ---
Date of Service Date of service: 06/23/24 Time of Service: 10:38 Assessment and Plan Assessment and plan (1) Cirrhosis of liver: Status: Chronic Assessment and plan: I reviewed all of the findings of the recent test, including the biochemistries and CT scan with Homar this morning. I explained that his liver function tests are deteriorating, he is developing evidence of coagulopathy with an elevated INR, and his glomerular filtration rate is approaching kidney failure. We reviewed the multiple findings of the CT scan. As it relates to his abdominal pain, I suspect his splenomegaly and left-sided hydronephrosis are probably accounting more for the pain than the ascites or the inguinal hernia. We talked about a number of different options, but essentially all of those things target individual components of his overall health, rather than a unifying approach. Homar explained quite clearly how his overall goal with regards to his health care was to optimize his quality of life, and that his main interest all along has been palliation of symptoms, rather than definitive cure of disease. I explained that his multisystem organ failure is congruent with the dying process, and I encouraged him to resolve his outstanding goals of being a good son, friend, and colleague to those who have accompanied him through life. Homar wants to focus on treating pain, anxiety, and the other unpleasant symptoms of dying, and forego any other quantity of life preserving therapy. He will transfer back to a hospice admission for symptom directed therapy. I have increased his antiemetics this morning, and we can make some other adjustments to his analgesia in order to better control his pain. He is going to speak with some of his family and friends and I encouraged them to have them come to the hospital to spend some time visiting and make a plan for the days to come. Subjective Subjective Interval history since last seen: Homar has some increased nausea and vomiting this morning, were treating that with Zofran. He also says that his pain is increased a bit, mostly localized to the left flank. Exam GI Other: His abdomen is soft and a bit distended. He is not very tender. Objective Last Vital Signs Temp 98.2 F 06/23/24 07:41 Pulse 95 H 06/23/24 07:41 Resp 18 06/23/24 07:41 BP 116/67 06/23/24 07:41 Pulse Ox 94 06/23/24 07:41 Laboratory Results - last 24 hr 06/22/24 06/22/24 06/22/24 11:45 16:22 18:45 PT 14.8 H INR 1.5 H Sodium 134 L Potassium 4.6 Chloride 100 Carbon Dioxide 28.1 Anion Gap 5.9 BUN 46 H Creatinine 4.0 H* 4.1 H* Est GFR (CKD-EPI 2020) 17.59 17.08 Glucose 189 H Calcium 7.9 L Total Bilirubin 4.8 H Conjugated Bilirubin 4.2 H AST 41 H ALT 38 Alkaline Phosphatase 370 H Total Protein 6.7 Albumin 1.6 L Urine Color Yellow Urine Clarity Cloudy Urine pH 5.5 Ur Specific [place] 1.015 Urine Protein 30 H Urine Ketones Negative Urine Blood Large H Urine Nitrite Negative Urine Bilirubin Small H Urine Urobilinogen 2.0 H Ur Leukocyte Esterase Moderate H Urine RBC >50 H Urine WBC >50 H Ur Epithelial Cells Negative Urine Crystals Negative Urine Bacteria Negative Urine Mucus Negative Urine Other Few Yeast Ur Culture Indicated? Yes Urine Glucose Negative Time Spent with Patient Time Spent with Patient: >50 minutes Time was spent: counseling the patient
--- NOTE | 2024-06-23 12:29 | W.PM.HP.N ---
Date of service: 06/23/24 Time of Service: 11:20 Assessment and Plan Assessment and plan (1) Primary biliary cirrhosis: Status: Acute Assessment and plan: Hospice admitting diagnosis, he will remain in hospital on symptom management today (2) Cirrhosis of liver: Status: Chronic Assessment and plan: w/worsening liver and coagulopathy labs 06/22 - end stage (3) Hepatic encephalopathy: Status: Acute Assessment and plan: Homar is clear today, has been clear for over 24h. however, he has refused lactulose last evening and this morning d/t moving bowels and multiple loose stools - last moved bowels this morning some since 7am, 5 loose stools overnight. Homar does not want to take lactulose, despite awareness of his mental clarity and twitching impacted by ammonia buildup. He is agreeable to trying it tonight w/OJ. He preference would be no meds, he agrees to scheduled miralax to keep moving bowels w/goal of maintaining clarity Miralax scheduled daily, unless takes lactulose, then hold Lactulose BID PRN, offer in OJ each dose, encouraged use (4) Edema: Status: Acute Assessment and plan: improved today - continue furosemide and spironolactone oral (5) Kidney stones: Status: Chronic Assessment and plan: non-surgical (6) Left inguinal hernia: Status: Acute Assessment and plan: non-surgical (7) Abdominal distension: Status: Acute Assessment and plan: slightly improved? small volume ascites in US yesterday, not enough for parasentesis re-evaluate PRN (8) Ascites: Status: Acute Assessment and plan: as above (9) Pain: Status: Acute Assessment and plan: hydromorphone CADD pump - to increase basal rate to 0.6mg/hr today, based on consistent elevated pain rating 7/10 - continue bolus rate of 0.4mg q15m PRN, encouraged he request bolus if pain uncontrolled Homar would like to consider alternative pain therapies: Reiki, heating pads; previously had good relief w/chiropractor; message sent to family support coordinator for potential Reiki tomorrow preference to have been better controlled prior to discharge - aware opioids may be causing muscle twitching (10) Nausea and vomiting: Status: Acute Assessment and plan: now improved s/p Zofran this morning Zofran 4-8mg q8h PRN - IV access PRN if unable to tolerate oral route, w/PRN Zorfran IV compazine, lorazepam and haldol available PRN (11) Anxiety: Status: Chronic Assessment and plan: continue lorazepam 0.5-1mg q4h PRN (12) Twitching: Status: Acute Assessment and plan: will continue to monitor - if become distressing can increase lorazepam dose to q1h, encourage lactulose (13) Hospice care patient: Status: Acute Assessment and plan: After thoughtful conversation w/Homar and his primary caregiver father Malcolm they have opted to remain in hospital today w/goal of improving symptoms prior to returning home. - Malcolm is worried he will not know what to do at home to help Homar at this time, charo w/meds (previously ind w/meds) and caregiving support. denies known DME needs today - symptoms today: pain, anxiety, nausea, see plans above I will return tomorrow around noon to re-evaluate discharge plan, offered to come in earlier if desire to return home DEIRDRE presents. Due to the rapid progression of Leonards biliary disease, now w/liver failure, renal failure, and now functional status w/more symptoms Homar's life expectancy is closer to days to weeks; previously there was optimism for weeks to months. This was reviewed with Homar and Malcolm, they are both having a hard time with this. History of Present Illness Narrative: Mr. Graf is a 48 y/o M on hospice for primary biliary cirrhosis. He will return to hospice service, in hospital for symptom management; father Malcolm at bedside He was initially admitted to hospital on hospice symptom management on 06/21 for potential parecentesis for presumed abdominal ascites. Surgical consult on 06/21 w/US showing small volume ascites, bowel distention, inguinal hernia. While surgeon was able to reduce inguinal hernia, it was not confident that it would stay; after conversation w/surgeon Homar opted to pursue potential hernial correction. He was transferred to surgical service for evaluation. Unfortunately his labs indicate worsening renal failure, w/creatinine 4, eGFR 17, elevated INR; CT showed splenomegaly, L sided hydronephrosis, these are now thought to be accounting more for his pain than ascites or inguinal hernia. Decision for no further procedural interventions, transfer back to hospice service for further symptom management. Pain: continues hydromorphone pump at 0.4mg/hr basal and 0.4mg bolus rate, he has had 3 boluses at 0.4mg rate, while he does feel this increased rate is working more appropriately, he has consistently reported pain 7/10, he did feel it went down to 5/10 after one bolus. Pain remains worse on LS abdomen to back. he is also now having increased full body jolts, increased today, they aren't painful, but someone distressing as its a new symptom Nausea/abdomen: he had sig nausea this morning, w/one episode of vomitting, Zofran given w/good effect on nausea. denies nausea currently. he does have a lower appetite. he now feels able to tolerate milk shakes well, settles stomach, he will request this later too. Edema: feel stomach is slightly smaller than initial presentation, less distention. however distention does still limit ability to take deep breaths w/o discomfort; BLE edema is also reduced today compared to yesterday, multifactorial: meds, elevation, diet. Urine: continues to make urine, Homar reports making his normal amounts of urine; no concerns today BM: moved bowels 5 times overnight, loose. has remained continent, but not without struggle to get to bathroom. He refused lactulose last night and this morning, d/t increased bowels, urgency concerns, and not liking the taste. He has never tried lactulose w/OJ, is open minded to trying. Clarity: he understands that increased confusion is a/w ammonia buildup and lactulose is to help treat that. He is open minded to continuing to move bowels w/meds, would prefer miralax at this time bc of taste. He is not interested in having lactulose scheduled, as above. he has remained clear since lactulose started on admission, per him, nursing and other report. Anxiety: after conversation w/Dr Fernandez this morning regarding his overall decline w/multisystem organ failure, he was feeling more anxious. was given Ativan 1mg w/good effect. He does not want to be overly sedated if avoidable, but is worried about anxiety as well. feels a big more sleepy w/Ativan, but able to have conversation and engage readily per staff: he was worried about insulin management earlier, finger stick this morning 155 and w/labs yesterday 189 w/BMP yesterday. no insulin administered. he participated in hygiene ADL this morning Homar understands he has a lot more going on than an inguinal hernia and renal stones. He understands that his disease is rapidly progressing, his kidneys are now failing, along with his liver. His dad is having a hard time with this as well. There are still a lot of things they have not reviewed: computers, passwords, planning, etc. While Malcolm would like to take Homar home today, he is worried that he is unsure of what he needs for medications and caregiving right now. Things have changed rapidly in recent days. Preference to have a plan in place prior to returning home: symptom management, caregiving support (what to do). - they also express concern over Homar's sister handling all of this, she has been emotional with everything. she also has two young children Review of Systems Narrative: as per HPI PFSH All Active Problems Twitching (Acute) Anxiety (Chronic) Nausea and vomiting (Acute) Pain (Acute) Cirrhosis of liver (Chronic) due to primary biliary cirrhosis Hepatic encephalopathy (Acute) Edema (Acute) Kidney stones (Chronic 05/06/14) Left inguinal hernia (Acute) Abdominal distension (Acute) Ascites (Acute) DNI (do not intubate) (Acute) DNR (do not resuscitate) (Acute) Hospice care patient (Acute) Primary biliary cirrhosis (Acute) Internal derangement of left knee (Acute) Injection: 11/14/2018 Peroneal tendinitis of left lower leg (Acute) Synovitis of right knee (Acute) Arthrofibrosis of total knee arthroplasty (Acute) S/P manipulation: 12/17/2019 Status post total knee replacement, right (Acute 10/30/19) Medical History Lumbar disc prolapse with compression radiculopathy S/P surgery History of kidney stones Stricture of bile duct Ulcerative colitis Surgical History History of liver biopsy History of tonsillectomy and adenoidectomy Previous back surgery spina occulta fusion in 1989' [place] 09/16/[place] [facility] [place] - [place] (06/[place]/11) [facility] [place]IVE [place] Cholecystectomy (04/06/11) Family History Mother No problems noted. Father Essential hypertension Heart disease ANEURYSM Hyperlipidemia Sister No problems noted. Grandfather No problems noted. 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 Pets and animals: No Current gender identity: male What is your relationship status?: never How often do you talk on the phone with friends or family?: three or more times per week How often do you get together with friends or relatives?: three or more times per week Panel score (0-1 are the most socially isolated patients): 1 What type of physical activity do you participate in: none and sedentary lifestyle Seatbelt use: always Working smoke detector in home: Yes Fire extinguisher in home: Yes Firearms in home: Yes Do you feel safe at home: Yes Additional Social history: Homar lives with his father, Malcolm. Malcolm moved in with Homar around the time Homar came on hospice. Homar inherited his house from his beloved grandmother. He only recently retired due to his illness. Worked at [employer] for since he was in his mid-20s. Meds Allergies and Home Medications Allergies Allergy/AdvReac Type Severity Reaction Status Date / Time midazolam (From Versed) AdvReac Unknown Pt states Verified 04/20/20 15:27 being advised by MD to avoid Home Medications ?Medication ?Instructions ?Recorded ?Confirmed ?Type acetaminophen 500 mg tablet 1,000 mg (2 x 500 mg) PO Q8H PRN 01/06/20 10/26/20 Rx pain #90 tabs lorazepam 1 mg tablet 1 mg PO Q4H PRN PRN anxiety #30 04/19/24 Rx tabs polyethylene glycol 3350 17 17 g PO DAILY #510 grams 04/25/24 Rx gram/dose oral powder (Miralax) pantoprazole 20 mg tablet,delayed 20 mg PO DAILY #90 tabs 04/30/24 Rx release pramipexole 0.5 mg tablet 0.5 mg PO QHS #30 tabs 05/14/24 Rx prochlorperazine maleate 10 mg 10 mg PO Q6H PRN nausea and 06/04/24 Rx tablet vomiting #30 tabs cephalexin 500 mg capsule 500 mg PO BID #14 caps 06/17/24 Rx hydromorphone 2 mg tablet 2 mg PO Q4H #90 tabs 06/17/24 Rx morphine concentrate 100 mg/5 mL 5 - 20 mg (0.25 - 1 mL) PO Q1H PRN 06/17/24 Rx (20 mg/mL) oral solution PRN pain #30 mL Exam Narrative Exam Narrative: General: ill appearing gentleman, lying on side in hospital bed, father at bedside HEENT: hearing grossly WNL, normocephalic, atraumatic, jaundice in eyes and face; Resp: even and unlabored, LS CTA limited to lateral exam, speaks full sentences w/no SOB;no cough Card: regular rate, regular rhythm GI: BS WNL all 4 quadrants, distention, painful w/light palpation, deferred more thorough exam d/t pain Neuro: full body jolts, averaging 1-2/m Ext: BLE 1+ pitting edema, predominately in ankles, R>L Psych: cooperative, pleasant, MS WNL, sad, guarded Results Labs 06/22/24 18:45 Labs: Laboratory Results - last 24 hr 06/22/24 06/22/24 16:22 18:45 Sodium 134 L Potassium 4.6 Chloride 100 Carbon Dioxide 28.1 Anion Gap 5.9 BUN 46 H Creatinine 4.1 H* Est GFR (CKD-EPI 2020) 17.08 Glucose 189 H Calcium 7.9 L Total Bilirubin 4.8 H Conjugated Bilirubin 4.2 H AST 41 H ALT 38 Alkaline Phosphatase 370 H Total Protein 6.7 Albumin 1.6 L Urine Color Yellow Urine Clarity Cloudy Urine pH 5.5 Ur Specific [place] 1.015 Urine Protein 30 H Urine Ketones Negative Urine Blood Large H Urine Nitrite Negative Urine Bilirubin Small H Urine Urobilinogen 2.0 H Ur Leukocyte Esterase Moderate H Urine RBC >50 H Urine WBC >50 H Ur Epithelial Cells Negative Urine Crystals Negative Urine Bacteria Negative Urine Mucus Negative Urine Other Few Yeast Ur Culture Indicated? Yes Urine Glucose Negative Last Vital Signs Temp 98.2 F 06/23/24 07:41 Pulse 95 H 06/23/24 07:41 Resp 18 06/23/24 07:41 BP 116/67 06/23/24 07:41 Pulse Ox 94 06/23/24 07:41 Time Spent Time spent with Patient: 55-74 minutes Time was spent: preparing to see the patient(eg.review tests), obtaining and/or reviewing separately otained hiistory, ordering medications,tests, procedures, referring, communicating with other health managed care nurse, counseling the patient and care coordination
[2024-06-23 18:47] VITALS: TEMP 37.5
[2024-06-23] MEDS: Pramipexole 0.5 MG TAB PO (20:43)
[2024-06-23] MEDS: LORazepam 1 MG TAB PO (20:43)
[2024-06-23] MEDS: Lactulose 20 GM/30 ML CUP PO (20:43)
[2024-06-24] MEDS: LORazepam 1 MG TAB PO ×2 (03:52→20:43)
[2024-06-24 07:31] VITALS: BP 115/68; PULSE 97; RESP 14; TEMP 36.9; O2SAT 92
[2024-06-24] MEDS: Acetaminophen 500 MG TAB 1000 MG PO (09:44)
[2024-06-24] MEDS: Pantoprazole 20 MG TABCR PO (09:45)
[2024-06-24] MEDS: Spironolactone 50 MG TAB PO (09:45)
[2024-06-24] MEDS: Furosemide 40 MG TAB PO (09:45)
--- NOTE | 2024-06-24 15:23 | PDOC.CMPRO ---
Date of service: 06/24/24 Time of Service: 15:23 Care Management Progress Note Progress Note Text Progress Note Text: Homar was sitting up in the bed when CM met with him today. He was noticeably more jaundiced and tired today than when CM met with him 2 days ago. He is on a hydromorphone gtt and is also receiving boluses. The goal is Homar's comfort. Homar's Dad and his sister, Adamaris, were visiting. Homar was pleasant, but as stated, very sleepy. His Dad was very friendly, and his sister couldn't keep from crying. Homar's condition has worsened, and it is expected that he will stay at [facility] through the rest of his life. Homar and his family were offered the [facility] former, but Homar stated he has met with her already, and is doing ok. CM offered support to the family as able. Discharge Plan: Anticipate that Homar will remain at [facility] through the end of his life. He will be kept as comfortable as possible. CM will continue to follow and support as able. Social Determinants of Health Screening Social Determinants of Health last assessed: 06/24/24 Will the Patient Participate in the Screening?: Yes Do you worry about having a steady place to live?: yes What is your living situation today?: I have housing today, but am worried about losing it Problems where you live: no known problems In the past 12 months, have you had to go without electric, gas, oil or water in your home?: no Have you or anyone in your house had to go without enough food to eat?: no Has lack of transportation kept you from medical appointments or from doing things needed for daily living?: no Has anyone in your life made you feel unsafe or unsupported?: no How hard is it for you to pay for the very basics like food, housing, medical care, and heating? Would you say it is:: Not hard at all Do you want help finding or keeping work or a job?: I do not need or want help If for any reason you need help with day-to-day activities such as bathing, preparing meals, shopping, managing finances, etc., do you get the help you need?: I don?t need any help How often do you feel lonely or isolated from those around you?: Never Do you speak a language other than [place] at home?: Yes Does the patient want assistance with any of the above?: No Health Related Social Needs Health related social needs: housing instability, housed, with risk of homelessness (Z59.811) and education (Z55.6)
[2024-06-24] MEDS: Ondansetron O.D.T. 4 MG TABEF PO (19:32)
[2024-06-24] MEDS: Pramipexole 0.5 MG TAB PO (20:43)
[2024-06-25 07:22] VITALS: BP 106/75; PULSE 104; RESP 16; TEMP 37; O2SAT 90
[2024-06-25] MEDS: Furosemide 40 MG TAB PO (07:45)
[2024-06-25] MEDS: Pantoprazole 20 MG TABCR PO (07:45)
[2024-06-25] MEDS: Spironolactone 50 MG TAB PO (07:45)
--- NOTE | 2024-06-25 08:52 | CMPROGNOTE_ITS ---
Date of service: 06/25/24 Time of Service: 08:52 Care Management Progress Note Progress Note Text Progress Note Text: Homar was lying in bed, his eyes are closed and he appears to be comfortable; CM did not wake him. The plan for Homar at this time is to remain at [facility] for end of life care. CM will continue to follow and offer support during this difficult time. Discharge Plan: Anticipate that Homar will remain at [facility] through the end of his life. He will be kept as comfortable as possible. CM will continue to follow and support as able. Social Determinants of Health Screening Social Determinants of Health last assessed: 06/25/24 Will the Patient Participate in the Screening?: Yes Do you worry about having a steady place to live?: yes What is your living situation today?: I have housing today, but am worried about losing it Problems where you live: no known problems In the past 12 months, have you had to go without electric, gas, oil or water in your home?: no Have you or anyone in your house had to go without enough food to eat?: no Has lack of transportation kept you from medical appointments or from doing things needed for daily living?: no Has anyone in your life made you feel unsafe or unsupported?: no How hard is it for you to pay for the very basics like food, housing, medical care, and heating? Would you say it is:: Not hard at all Do you want help finding or keeping work or a job?: I do not need or want help If for any reason you need help with day-to-day activities such as bathing, preparing meals, shopping, managing finances, etc., do you get the help you need?: I don?t need any help How often do you feel lonely or isolated from those around you?: Never Do you speak a language other than [place] Island[place] at home?: Yes Does the patient want assistance with any of the above?: No Health Related Social Needs Health related social needs: housing instability, housed, with risk of homelessness (Z59.811) and education (Z55.6)
--- NOTE | 2024-06-25 09:17 | NUR.NOTE ---
Pt is lying in bed during initial assessment. Pt denied any needs at the time. Pt has bed alarm on for increasing decline in condition and weakness. Pt has CADD pump running hydromorphone at 0.8 mg/hr. Pump verified by this nurse and THADDEUS Darby. Pt appearing jaundiced. This RN returned to room with am meds around 0745 and pt c/o pain 7/10. Bolus of 0.4 mg given. Receheck revieled no change after bolus in pain severity. Will discuss with provider
[2024-06-25] MEDS: Ondansetron O.D.T. 4 MG TABEF PO ×3 (09:25→20:24)
[2024-06-25] MEDS: Lactulose 20 GM/30 ML CUP PO (14:25)
[2024-06-25] MEDS: Senna TAB PO (20:08)
[2024-06-25] MEDS: Pramipexole 0.5 MG TAB PO (20:08)
[2024-06-25] MEDS: Normal Saline Flush 10 ML SYR IVP (20:08)
--- NOTE | 2024-06-25 20:23 | HPE_ITS ---
Date of service: 06/24/24 Time of Service: 09:30 Assessment and Plan Assessment and plan (1) Nausea and vomiting: Status: Acute Assessment and plan: Nausea being treated with zofran at this time. He has other medications ordered. He would not want an NGT. (2) Pain: Status: Acute Assessment and plan: Has required frequent increases in his basal and bolus dosing. Currently comfortable. Prefers subcutaneous dosing rather than oral meds as nausea worse with oral meds. Swallowing also becoming more difficult. (3) Anxiety: Status: Chronic Assessment and plan: Life long problem, but worse now. Feels as if time is rapidly running out. Has lorazepam ordered. Nurse reports he did better with lower dosing of 0.5 mg. (4) Twitching: Status: Acute Assessment and plan: Likely due to combination of liver failure and opioid side effect, mostly the former. (5) Cirrhosis of liver: Status: Chronic Assessment and plan: Due to his primary biliary sclerosis. Was closely followed by Dr Chino SNOW at [facility]. Last visit there was in March 2024. Note that Homar's progression of disease has been relatively rapid. He had a normal abd CT 2.5 years ago. Diagnosis was made only 4 years ago. (6) Hepatic encephalopathy: Status: Acute Assessment and plan: Encouraged Homar to take his lactulose. He has not been taking it consistently at home or in the hospital. Doesn't like the taste. Better in OJ, per nursing. (7) Abdominal distension: Status: Acute (8) Hospice care patient: Status: Acute Assessment and plan: Homar is on general inpatient care for symptom management. His care cannot be currently provided at home due to rapid frequent medication adjustments. (9) Primary biliary cirrhosis: Status: Acute History of Present Illness History of Present Illness Chief Complaint: primary biliary sclerosis, actively dying, MSOF Narrative: Homar is once again on hospice symptom management as of 06/23. I admitted him on Wednesday 06/21 and he was transferred to surgery for about 24 hrs and then when surgical interventions were not thought prudent or possible, he was transferred back to hospice symptom management. He was seen by Oksana Murphy NP both 06/22 and 06/23 for the hospice team. I am seeing him today as I heard about him going into multi-system organ failure and wanted to see how he was handling the news. Homar has been reluctant at best to discuss his own impending . He has rapidly declined over the last 3 days. He required increases in his basal and bolus doses of his hydromorphone pump. When he was admitted, I started him on 0.4 mg/hr and he went to 0.6 mg and is now on 0.8 mg. He is using his boluses only through the nurses administering them. He tells me that he needs a few at least of boluses as well as his basal. He is confused intermittently. He drifts off in the middle of sentences. He looks very weak. He has what appears to be a hepatic encepholopathy that is worsening since admission. His skin color is abnormal, c/w liver failure. His father is struggling to accept his son's . He moved into Homar's home to care for him but he feels overwhelmed with how quickly Homar is declining and how many medication changes he has needed since being admitted. [facility] All Active Problems Twitching (Acute) Anxiety (Chronic) Nausea and vomiting (Acute) Pain (Acute) Cirrhosis of liver (Chronic) due to primary biliary cirrhosis Hepatic encephalopathy (Acute) Edema (Acute) Kidney stones (Chronic 05/06/14) Left inguinal hernia (Acute) Abdominal distension (Acute) Ascites (Acute) DNI (do not intubate) (Acute) DNR (do not resuscitate) (Acute) Hospice care patient (Acute) Primary biliary cirrhosis (Acute) Internal derangement of left knee (Acute) Injection: 11/14/2018 Peroneal tendinitis of left lower leg (Acute) Synovitis of right knee (Acute) Arthrofibrosis of total knee arthroplasty (Acute) S/P manipulation: 12/17/2019 Status post total knee replacement, right (Acute 10/30/19) Medical History Lumbar disc prolapse with compression radiculopathy S/P surgery History of kidney stones Stricture of bile duct Ulcerative colitis Surgical History History of liver biopsy History of tonsillectomy and adenoidectomy Previous back surgery spina occulta fusion in 1990's ERCP 09/16/[address] [facility] Colonoscopy - MAC (06/01/11) [facility]-ULCERATIVE COLITIS Cholecystectomy (04/06/11) Family History Mother No problems noted. Father Essential hypertension Heart disease ANEURYSM Hyperlipidemia Sister No problems noted. Grandfather No problems noted. 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 Pets and animals: No Current gender identity: male What is your relationship status?: never How often do you talk on the phone with friends or family?: three or more times per week How often do you get together with friends or relatives?: three or more times per week Panel score (0-1 are the most socially isolated patients): 1 What type of physical activity do you participate in: none and sedentary lifestyle Seatbelt use: always Working smoke detector in home: Yes Fire extinguisher in home: Yes Firearms in home: Yes Do you feel safe at home: Yes Additional Social history: Homar lives with his father, Malcolm. Malcolm moved in with Homar around the time Homar came on hospice. Homar inherited his house from his beloved grandmother. He only recently retired due to his illness. Worked at [employer] for since he was in his mid-20s. Meds Allergies and Home Medications Allergies Allergy/AdvReac Type Severity Reaction Status Date / Time midazolam (From Versed) AdvReac Unknown Pt states Verified 04/20/20 15:27 being advised by MD to avoid Home Medications ?Medication ?Instructions ?Recorded ?Confirmed ?Type acetaminophen 500 mg tablet 1,000 mg (2 x 500 mg) PO Q8H PRN 01/06/20 10/26/20 Rx pain #90 tabs lorazepam 1 mg tablet 1 mg PO Q4H PRN PRN anxiety #30 04/19/24 Rx tabs polyethylene glycol 3350 17 17 g PO DAILY #510 grams 04/25/24 Rx gram/dose oral powder (Miralax) pantoprazole 20 mg tablet,delayed 20 mg PO DAILY #90 tabs 04/30/24 Rx release pramipexole 0.5 mg tablet 0.5 mg PO QHS #30 tabs 05/14/24 Rx prochlorperazine maleate 10 mg 10 mg PO Q6H PRN nausea and 06/04/24 Rx tablet vomiting #30 tabs cephalexin 500 mg capsule 500 mg PO BID #14 caps 06/17/24 Rx hydromorphone 2 mg tablet 2 mg PO Q4H #90 tabs 06/17/24 Rx morphine concentrate 100 mg/5 mL 5 - 20 mg (0.25 - 1 mL) PO Q1H PRN 06/17/24 Rx (20 mg/mL) oral solution PRN pain #30 mL Exam Narrative Exam Narrative: Homar was in bed lying on his back throughout my visit. His abdomen is even more distended than it was on Monday, day of admission. His skin is sallow. He is teary-eyed. He is having frequent myoclonus. He is uncertain about what he wants to do. He wants more time to decide about whether he wants to go home to or stay in the hospital. It is very hard for him to believe that he is actually dying. We discussed him calling his friend Nilton and his sister Adamaris to come visit later. He was able to tell me that Dr Fernandez explained that hernia repair would not relieve his pain nor would parancentesis help. We talked about his other findings on imaging. Homar said he had no idea how sick he had become over the last 3 months. He has had a rapid decline especially over the last month. Results Labs 06/22/24 18:45 Last Vital Signs Temp 98.6 F 06/25/24 07:22 Pulse 104 H 06/25/24 07:22 Resp 16 06/25/24 07:22 BP 106/75 06/25/24 07:22 Pulse Ox 90 L 06/25/24 07:22 Time Spent Time spent with Patient: 55-74 minutes Time was spent: ordering medications,tests, procedures, referring, communicating with other health manager of care, counseling the patient and care coordination
--- NOTE | 2024-06-25 20:45 | PGE_ITS ---
Date of Service Date of service: 06/25/24 Time of Service: 10:50 Assessment and Plan Assessment and plan (1) Liver failure: Status: Acute Assessment and plan: Leonards liver appears to be failing rapidly now, based on his encephalopathy and asterixis and jaundice. I encouraged him to try scheduled lactulose, to help him be as clear as possible, but made it clear to him and then nurses that if frequent stooling was too much of a burden, he didn't have to take the medication. His father Malcolm told me that Homar had finished his legal paperwork for his estate/will/etc on the Monday prior to admission. (2) Kidney failure: Status: Chronic Assessment and plan: Due to his frequent and persistent kidney stones, which were due to his PBS too. (3) Asterixis: Status: Acute Assessment and plan: Symptom of liver failure. Present on exam. (4) Nausea and vomiting: Status: Acute Assessment and plan: No vomiting today, but persistent nausea. Encouraged scheduled dosing of antiemetics. (5) Pain: Status: Acute (6) Cirrhosis of liver: Status: Chronic (7) Hepatic encephalopathy: Status: Acute (8) Abdominal distension: Status: Acute (9) Hospice care patient: Status: Acute Assessment and plan: Homar remains on symptom management. He is requiring daily medication changes in anti-emetics, pain meds, and anti anxiety meds. We have yet to find a regimen that allows him enough stability to get him home comfortably. Will continue to manage his symptoms aggressively. Thanks to all the people caring for Homar, including hospice and [facility] staff. Subjective Subjective Patient reports: still having pain, no bowel movement, nausea, shortness of breath (WITH MOVEMENT) and fever; denies feels better Interval history since last seen: Homar continues to decline. His nausea is worse today than it was yesterday. He agreed to have scheduled zofran and to try other meds as ordered. He doesn't want NGT His pain is well controlled if he lies still on his back, but he did get up with assistance to the bathroom and his pain was worse. He says his pain is everywhere but mostly in his back and abdomen. He is short of breath. He is having significant myoclonus. His father and sister were with him during my visit. Good friends Nilton and German have been with Homar, too. Homar appears very weak. Even speaking is an effort. He cries easily. He admits to being frightened Nurses report that he has not had a BM since taking lactulose last night. Exam Narrative Exam Narrative: Homar was lying on his back in the bed, abdomen distended, skin sallow. He is less alert than he was the day prior. He drifted off multiple times in the middle of a sentence and he then started talking about things that were unrelated to current situation. He looked very weak and exhausted. Speaking was an effort. He had no furrowed brow nor grimace. He was not moaning. His lungs were clear in anterior pierce. His heart was tachycardic. His abdomen was distended. His spleen is very enlarged. He was tender in both upper quadrants. He felt nauseated by palpation. He was tearful, talking about not being ready to . He had frequent myoclonus, two or three times per minute on average. Objective Last Vital Signs Temp 98.6 F 06/25/24 07:22 Pulse 104 H 06/25/24 07:22 Resp 16 06/25/24 07:22 BP 106/75 06/25/24 07:22 Pulse Ox 90 L 06/25/24 07:22 Time Spent with Patient Time Spent with Patient: >50 minutes Time was spent: preparing to see the patient(eg.review tests), referring, communicating with other health child day care teacher, counseling the patient and care coordination
[2024-06-26] MEDS: Ondansetron O.D.T. 4 MG TABEF PO ×2 (00:40→09:07)
[2024-06-26 07:13] VITALS: BP 110/69; PULSE 86; RESP 16; TEMP 37.2; O2SAT 96
[2024-06-26] MEDS: Furosemide 40 MG TAB PO (07:45)
[2024-06-26] MEDS: Pantoprazole 20 MG TABCR PO (07:45)
[2024-06-26] MEDS: Spironolactone 50 MG TAB PO (07:45)
--- NOTE | 2024-06-26 09:58 | PGE_ITS ---
Date of Service Date of service: 06/26/24 Time of Service: 09:58 Assessment and Plan Assessment and plan (1) Liver failure: Status: Acute Assessment and plan: Leonards liver appears to be failing rapidly now, based on his encephalopathy and asterixis and jaundice. He has not moved his bowels yet today, he was drinking miralax during the visit. Lactulose is also ordered. Encouraged lactulose to help keep his mind clear. Per previous provider note: His father Malcolm told me that Homar had finished his legal paperwork for his estate/will/etc on the Monday prior to admission. (2) Kidney failure: Status: Chronic Assessment and plan: Due to his frequent and persistent kidney stones, which were due to his PBS. (3) Asterixis: Status: Acute Assessment and plan: Symptom of liver failure. Present on exam. (4) Nausea and vomiting: Status: Acute Assessment and plan: He has persistent nausea. He is using antiemetics. Scheduled lorazepam may help as well. (5) Pain: Status: Acute (6) Cirrhosis of liver: Status: Chronic (7) Hepatic encephalopathy: Status: Acute (8) Abdominal distension: Status: Acute (9) Anxiety: Status: Chronic Assessment and plan: With increased anxiety surrounding dying. Schedule lorazepam 0.25 mg am and 0.5 mg at HS, titrate as needed. He agrees to digital forensic analyst visit. (10) Hospice care patient: Status: Acute Assessment and plan: Homar remains on symptom management. He is requiring daily medication changes in anti-emetics, pain meds, and anti anxiety meds. We have yet to find a regimen that allows him enough stability to get him home comfortably. Will continue to manage his symptoms aggressively. His family wants to honor his wishes and will do what they need to do to care for him. Subjective Subjective Interval history since last seen: Homar was seen in his hospital room with his dad and sister present. His nurse reports that she increased his hydromorphone to 1 mg/hr. His pain remains difficult to manage. He states, this morning has been tough. He told his nurse he just does not feel well. His nurse was giving lorazepam at the time of his visit. During the visit, he was tearful and states, I don't want to be afraid to . He admits to feeling anxious. Discussed scheduling lorazepam. He is open to this and reports that the lorazepam helps with his anxiety but it also makes him sleepy. He wants to be awake enough to spend time with his visitors. He also has persistent nausea, which the lorazepam can help with as well. He agrees to scheduling low dose lorazepam. Non Acoustic Operator services offered, which he accepted. He was able to get OOB with assistance today. He is only drinking shakes, no solid food intake since he has been at the hospital He has not had a BM yet today. He was drinking miralax during the visit. They have insurance questions. He is currently on [employer] and they report that it ends on 07/08/24. They are looking for some guidance. Will ask [facility]INE[facility] to meet with them at the hospital. They have asked ORACLE ENGINEER to call Adamaris at [phone]. Exam Narrative Exam Narrative: Homar was lying on his back in the bed, with HOB elevated. His abdomen is distended, skin sallow. He was tearful frequently during the visit. He dozed off multiple times during the visit but awakened easily. He looked very weak and fatigued. He had no furrowed brow nor grimace. He was not moaning. His abdomen was distended. He was taking sips and swallowing well. Frequent myoclonus noted. He is moving his arms and legs freely. Objective Last Vital Signs Temp 37.2 C 06/26/24 07:13 Pulse 86 06/26/24 07:13 Resp 16 06/26/24 07:13 BP 110/69 06/26/24 07:13 Pulse Ox 96 06/26/24 07:13 Time Spent with Patient Time Spent with Patient: >50 minutes Time was spent: preparing to see the patient(eg.review tests), obtaining and/or reviewing separately otained hiistory, ordering medications,tests, procedures, r eferring, communicating with other health care director, counseling the patient and care coordination
[2024-06-26] MEDS: LORazepam 1 MG TAB PO (10:11)
[2024-06-26] MEDS: Polyethylene Glycol 3350 17 GM PACKET PO (10:12)
--- NOTE | 2024-06-26 14:29 | PDOC.CMPRO ---
Date of service: 06/26/24 Time of Service: 14:29 Care Management Progress Note Progress Note Text Progress Note Text: Homar was not available when CM went to check in with him. 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 His primary RN shared with this CM that he's been sad and tearful today. His family appear to be supportive and present in Homar's life. Homar is admitted on Hospice for aggressive symptom management for his pain and anxiety. The plan for Homar at this time is to remain at [facility] for end of life care. CM will continue to follow and offer support during this difficult time. Discharge Plan: Homar is Anticipate that Homar will remain at [facility] through the end of his life. He will be kept as comfortable as possible. CM will continue to follow and support as able. Social Determinants of Health Screening Social Determinants of Health last assessed: 06/26/24 Will the Patient Participate in the Screening?: Yes Do you worry about having a steady place to live?: yes What is your living situation today?: I have housing today, but am worried about losing it Problems where you live: no known problems In the past 12 months, have you had to go without electric, gas, oil or water in your home?: no Have you or anyone in your house had to go without enough food to eat?: no Has lack of transportation kept you from medical appointments or from doing things needed for daily living?: no Has anyone in your life made you feel unsafe or unsupported?: no How hard is it for you to pay for the very basics like food, housing, medical care, and heating? Would you say it is:: Not hard at all Do you want help finding or keeping work or a job?: I do not need or want help If for any reason you need help with day-to-day activities such as bathing, preparing meals, shopping, managing finances, etc., do you get the help you need?: I don?t need any help How often do you feel lonely or isolated from those around you?: Never Do you speak a language other than Sinhala at home?: Yes Does the patient want assistance with any of the above?: No Health Related Social Needs Health related social needs: housing instability, housed, with risk of homelessness (Z59.811) and education (Z55.6)
--- NOTE | 2024-06-26 17:19 | CHAPLAIN ---
I visited Homar this morning while three friends from [employer] (?) were visiting. I'm not sure of the exact title of the organization, but Homar has belonged to the group for a while. His dad and sister are not participants so the opted not to be in the room while these friends were visiting. Our Reiki volunteer came in to offer Homar Pérez and he asked that we all remain in the room with him. Previously the Reike sessions have relaxed Homar enough that he fell asleep. Another friend, from work, arrived during the Reiki session. Homar is more jaundice today. This evening when I visited, Homar was having trouble staying awake. His sister, dad and two other people were with him. I will continue to visit.
[2024-06-26] MEDS: Senna TAB PO (20:00)
[2024-06-26] MEDS: LORazepam 0.5 MG TAB PO (20:00)
[2024-06-26] MEDS: Pramipexole 0.5 MG TAB PO (20:00)
[2024-06-26] MEDS: Normal Saline Flush 10 ML SYR IVP (20:00)
[2024-06-27] MEDS: HYDROmorphone 100 MG in CADD PUMP CASSETTE 1 EACH, Normal Saline 90 ML SC_INF (05:20)
[2024-06-27] MEDS: Ondansetron O.D.T. 4 MG TABEF PO (05:30)
[2024-06-27 08:01] VITALS: BP 118/72; PULSE 98; RESP 18; TEMP 36.8; O2SAT 91
[2024-06-27] MEDS: LORazepam 0.5 MG TAB 0.25 MG PO (09:21)
[2024-06-27] MEDS: Pantoprazole 20 MG TABCR PO (09:22)
[2024-06-27] MEDS: Spironolactone 50 MG TAB PO (09:22)
[2024-06-27] MEDS: Furosemide 40 MG TAB PO (09:22)
[2024-06-27] MEDS: Normal Saline Flush 10 ML SYR IVP (09:27)
--- NOTE | 2024-06-27 14:30 | CHAPLAIN ---
I visited with Homar this morning. He had now visitors yet. He showed me a piece of artwork a friend had made for him that included a tribute to Homar's cat who . When I asked Homar if he has any worries or concerns that we could help with, he said he wants to make this is easy for his family. He would like to contact [facility], and I told him I would let Alondra, his Cell Tower Climber, know that and she could help with that. Although Homar is having pain, he doesn't want pain meds that will make him too drowsy as he wants to be able to communicate with family and friends. He was teary talking about his sister, acknowledging that she has a family to take care of and she's spending a lot of time here with Homar.
--- NOTE | 2024-06-27 14:58 | W.PM.DS.N ---
Date of service: 06/27/24 Time of Service: 14:58 DS: Diagnosis Discharge Diagnosis (1) Liver failure: Status: Acute Asessment and Plan: Worsening. On spiranolactone to minimize ascites. Not a candidate for parencentesis. Seen by Dr Fernandez during admission. ON his service x 24 hrs. (2) Kidney failure: Status: Chronic Asessment and Plan: Chronic kidney stones. Was scheduled for open stone retrieval in August. Not a surgical candidate at this time. (3) Asterixis: Status: Acute Asessment and Plan: From his chronic liver failure. (4) Nausea and vomiting: Status: Acute Asessment and Plan: Much improved. Going home with zofran odt which was most effective of his anti-emetics here. (5) Pain: Status: Acute Asessment and Plan: Controlled on hydromorphone CADD pump at 1.2 mg/hr with a 1.0 mg bolus q 15 minutes. 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 Reason he is on hospice. (7) Hepatic encephalopathy: Status: Acute (8) Abdominal distension: Status: Acute Asessment and Plan: Will not resolve, due primarily to splenomegaly, partially to ascites. (9) Anxiety: Status: Chronic Asessment and Plan: Chronic problem. TO take 0.25 mg each am and 0.5 mg each night scheduled. He may take additional dosing up to 1 mg po q 4 hrs. He is very sensitive to this medication and needs lower doses generally. (10) Hospice care patient: Status: Acute Asessment and Plan: Going home by private care with hospice-provided wheelchair and CADD pump. Will have daily nurses over the weekend. I will see next Monday for home visit. Discharge Plan Disposition Patient Disposition: Transfer-Acute Inpatient Care Specific Acute Inpt Facility: Other Condition: Deteriorating Discharge Details Reason For Visit: hospice patient primary biliary sclerosis Admit Date/Time: 06/21/24 13:10 Admit Provider: Lashonda Durand Attending Provider: Lashonda Durand Primary Care Provider: None,None Hospital Course Hospital Course: Homar was admitted 06/21/24 for hospice symptom management w/abdominal distention - surgical consult: small volume of symptomatic ascites, w/bowel distention, good relief of pain w/reduction of inguinal hernia; conversation w/patient, determined that he would not benefit from inguinal hernia surgery. IMaging showed significant splenomegaly and chronic kidney stones. He has an obviously cirrhotic liver. Please see Dr Fernandez's and Oksana Squires's excellent notes. Pain: is better since starting hydromorphone pump initially, at 0.4mg/hr basal, now up to 1.2 mg/hr as of day of discharge. We increased the bolus rate from 0.2mg q15m to 1.0 mg PRN today, continue to monitor. Pain controlled on day of discharge. He has been taking his lactulose sometimes; he prefers miralax in general. Stooling almost daily on June 22, , and , which is helping keep him mentally clear. Once he is home, he will need attentive bowel management, due to increasing doses of opioids and need for prevention of hepatic encephalopathy. Now that he has stabilized I offered discharge home. He wants to go home to be with his cat. He always thought he would at home. He asked if he could reduce his diuretics. He doesn't want a condom or Ritchie catheter. I still getting up with walker and stand-by guard to walk to the . He is non-ambulatory for more than 5-10 feet. He is going home with a Hospice Wheelchair in private car. Father Malcolm and sister Adamaris assisting him home. Home Meds and New Rx's Prescriptions: New lorazepam 0.5 mg Tablet 0.25 mg PO DAILY Qty: 60 0RF Rx Instructions: hospice take 1/2 tab in the am and 1 tab in the pm scheduled may take additional tabs q 4 hrs prn ondansetron 4 mg Tablet,Disintegrating 4 - 8 mg PO Q4H PRN PRN (Reason: Nausea) Qty: 14 0RF spironolactone 50 mg Tablet 50 mg PO DAILY Qty: 14 3RF lactulose 10 gram/15 mL Solution 20 g PO BID PRN PRN (Reason: Constipation) Qty: 237 1RF Continued acetaminophen 500 mg tablet 1,000 mg PO Q8H PRN (Reason: pain) Qty: 90 3RF polyethylene glycol 3350 [Miralax] 17 gram/dose powder 17 g PO DAILY Qty: 510 0RF pantoprazole 20 mg tablet,delayed release (DR/EC) 20 mg PO DAILY Qty: 90 2RF pramipexole 0.5 mg tablet 0.5 mg PO QHS Qty: 30 3RF prochlorperazine maleate 10 mg tablet 10 mg PO Q6H PRN (Reason: nausea and vomiting) Qty: 30 8RF Rx Instructions: hospice hydromorphone 2 mg tablet 2 mg PO Q4H MDD 14 mg Qty: 90 0RF Rx Instructions: hospice Discontinued lorazepam 1 mg tablet 1 mg PO Q4H PRN PRN (Reason: anxiety) Qty: 30 5RF Rx Instructions: hospice patient morphine concentrate 100 mg/5 mL (20 mg/mL) solution 5 - 20 mg PO Q1H PRN MDD 480 PRN (Reason: pain) Qty: 30 0RF Rx Instructions: hospice patient cephalexin 500 mg capsule 500 mg PO BID Qty: 14 0RF Rx Instructions: hospice patient Discharge Instructions Activity:: Activity as Tolerated Equipment/Supplies:: W/C Diet:: As Tolerated DS: Summary Time Spent with Patient providing and/or coordinating discharge services: Greater than 30 minutes Status at Discharge Functional status at discharge: wheelchair bound Overall status at discharge: patient is not back to baseline Mental Status: mental status grossly normal Speech and Movement: No agitated, delayed speech, No pressured speech, No restless and slowed movement Mood: congruent mood Affect: sad Quality:SDOH Health Related Social Needs: Health related social needs housing instability, housed, with risk of homelessness (Z59.811), education (Z55.6) Exam Narrative Exam Narrative: Homar was lying on his back in the bed, with HOB elevated. His abdomen is distended, skin sallow. He reported to me that his pain was controlled. He has had 3 boluses today. He was more alert and interactive today than he has been on 06/24 and 06/25. He still looks very weak and fatigued. He had no furrowed brow nor grimace. He was not moaning. His abdomen was distended. He has an incipient pressure ulcer on his right buttock. Lungs CTAB. No increased WOB. Heart regular and normal rate. Frequent myoclonus noted. He is moving his arms and legs freely. Psych Mental Status: mental status grossly normal Speech and Movement: not agitated, delayed speech, speech not pressured, not restless and slowed movement Mood: congruent mood Affect: sad DS: Data Vitals/I&O Vitals and I&O: Vital Signs Temperature 98.2 F 06/27/24 08:01 Temperature Source Temporal Artery Scan 06/27/24 08:01 Pulse 98 H 06/27/24 08:01 Pulse Rhythm Regular 06/21/24 14:52 Respiratory Rate 18 06/27/24 08:01 Respiratory Effort Normal 06/21/24 14:52 Respiratory Depth Normal 06/21/24 14:52 Respiratory Pattern Normal 06/21/24 14:52 Blood Pressure 118/72 06/27/24 08:01 Pulse Oximetry 91 L 06/27/24 08:01 Oxygen Delivery Method Room Air 06/27/24 11:03 Oxygen Flow Rate 0 06/27/24 11:03 Pain Level 0 06/27/24 11:03 Comment Notifying RN 06/27/24 08:01 Intake & Output 06/26/24 06/27/24 06/27/24 23:59 11:59 23:59 Intake Total 11.550 / 520.876 17.534 / 22.224 4.69 / 22.224 Balance 11.550 / 520.876 17.534 / 22.224 4.69 / 22.224 Intake: IV 11.550 / 20.876 17.534 / 22.224 4.69 / 22.224 Other: Urine Color Yellow Urine Appearance Clear Urine Odor Normal Comment un measured PFSH All Active Problems Asterixis (Acute) Kidney failure (Chronic) Liver failure (Acute) Twitching (Acute) Anxiety (Chronic) Nausea and vomiting (Acute) Pain (Acute) Cirrhosis of liver (Chronic) due to primary biliary cirrhosis Hepatic encephalopathy (Acute) Edema (Acute) Kidney stones (Chronic 05/06/14) Left inguinal hernia (Acute) Abdominal distension (Acute) Ascites (Acute) DNI (do not intubate) (Acute) DNR (do not resuscitate) (Acute) Hospice care patient (Acute) Primary biliary cirrhosis (Acute) Internal derangement of left knee (Acute) Injection: 11/14/2018 Peroneal tendinitis of left lower leg (Acute) Synovitis of right knee (Acute) Arthrofibrosis of total knee arthroplasty (Acute) S/P manipulation: 12/17/2019 Status post total knee replacement, right (Acute 10/30/19) Medical History Lumbar disc prolapse with compression radiculopathy S/P surgery History of kidney stones Stricture of bile duct Ulcerative colitis Surgical History History of liver biopsy History of tonsillectomy and adenoidectomy Previous back surgery spina occulta fusion in [facility] 09/16/14 [facility] [place] Colonoscopy - MAC (06/01/11) [facility] [place]-ULCERATIVE COLITIS Cholecystectomy (04/06/11) Family History Mother No problems noted. Father Essential hypertension Heart disease ANEURYSM Hyperlipidemia Sister No problems noted. Grandfather No problems noted. 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 Pets and animals: No Current gender identity: male What is your relationship status?: never How often do you talk on the phone with friends or family?: three or more times per week How often do you get together with friends or relatives?: three or more times per week Panel score (0-1 are the most socially isolated patients): 1 What type of physical activity do you participate in: none and sedentary lifestyle Seatbelt use: always Working smoke detector in home: Yes Fire extinguisher in home: Yes Firearms in home: Yes Do you feel safe at home: Yes Additional Social history: Homar lives with his father, Malcolm. Malcolm moved in with Homar around the time Homar came on hospice. Homar inherited his house from his beloved grandmother. He only recently retired due to his illness. Worked at [employer] for since he was in his mid-20s. Time Spent with Patient Time Spent with Patient: >85 minutes Time was spent: preparing to see the patient(eg.review tests), ordering medications,tests, procedures, referring, communicating with other health elderly caregiver, counseling the patient and care coordination
--- NOTE | 2024-06-27 15:19 | CMDISCH_ITS ---
Date of service: 06/27/24 Time of Service: 15:19 LACE Index Scoring Tool Questions: Length of Stay (in days): 7 - 13 (6 days as hospice, 1 day as surgical) Was the patient admitted via the E.D.?: No Comorbidities: with End Organ Damage and Liver or Renal Disease E.D. Visits: 0 Answers: Total Score: 10 Risk of Readmission: High Risk Care Management Discharge Plan Reason for Hospitalization: symptom management Discharge Plan: Homar will be discharged this afternoon home with his Dad. He will continue with his hospice providers. He will be going home with a hydromorphone pump for pain control. He will transport home in a private vehicle with his Dad. Patient/Family Education Needs: Review of discharge instructions and discuss ask me 3. Services Needed at Discharge: Home Health Care Services (hospice) SDOH Health Related Social Needs: Health related social needs housing instability, house d, with risk of homelessness (Z59.811), education (Z55.6)
== END 2024-06-27 16:00 | disposition home or self-care (01) | DRG 433 ==
PROVIDERS: Surgery; Admitting Provider Family Medicine; Visit Provider Family Medicine
DX: N13.1 Hydronephrosis with ureteral stricture, not elsewhere classified; R18.8 Other ascites; K74.3 Primary biliary cirrhosis; K40.90 Unilateral inguinal hernia, without obstruction or gangrene, not specified as recurrent; K76.82 Hepatic encephalopathy; R11.2 Nausea with vomiting, unspecified; F41.9 Anxiety disorder, unspecified; Z66 Do not resuscitate; Z96.651 Presence of right artificial knee joint; Z51.5 Encounter for palliative care; K72.90 Hepatic failure, unspecified without coma; N18.9 Chronic kidney disease, unspecified; G25.3 Myoclonus
CPT/HCPCS: 00123; 36415; 80048; 80076; 74176; 81003; 81015; 82565; 85610; 87086; J1171; J8597